=== PATIENT | female | born 1975 | race Caucasian/White ===

== ENCOUNTER 2023-03-27 15:36 | Emergency (ER) | payer OTHER, SELFPAY ==
[2023-03-27 15:40] VITALS: BP 170/90; PULSE 118; RESP 18; TEMP 37; O2SAT 99; BMI 37.8
--- NOTE | 2023-03-27 15:48 | ED.ABDPAIN1 ---
HPI - Abdominal Pain General Chief Complaint: Abdominal Pain Stated Complaint: Abdominal Pain Time Seen by Provider: 03/27/23 15:38 History of Present Illness HPI narrative: 47-year-old female presents for lower abdominal pain. She's had it since last night. No constipation or diarrhea or vomiting. She may have had some dysuria. No fever or complaints of back pain. She has a history of uterine fibroid that she states she didn't get taken care of because she had a promotion at work and didn't want to take off time. It is moderate and continuous. Related Data Home Medications Medication Instructions Recorded Confirmed hydrochlorothiazide 25 mg tablet 25 mg PO QDAY 03/27/23 03/27/23 lisinopril 10 mg tablet mg 03/27/23 omeprazole 40 mg capsule,delayed 40 mg PO QDAY 03/27/23 03/27/23 release Previous Rx's Medication Instructions Recorded ciprofloxacin HCl 500 mg tablet 500 mg PO Q12H #20 tabs 03/27/23 (Cipro) metronidazole 250 mg tablet 250 mg PO TID #30 tabs 03/27/23 Allergies Allergy/AdvReac Type Severity Reaction Status Date / Time No Known Drug Allergies Allergy Verified 03/27/23 15:39 Review of Systems ROS Narrative A ten point review of systems is negative except as noted above. Exam Narrative Exam Narrative: Nurses note and vital signs reviewed and patient is not hypoxic. General: The patient appears well and in no apparent distress. Patient is resting comfortably on cart. Skin: Warm, dry, no pallor noted. There is no rash noted. Head: Normocephalic, atraumatic Eye: Normal conjunctiva, no drainage Ears, Nose, Mouth, and Throat: oral mucosa is moist. Nares patent. Cardiovascular: Regular Rate and Rhythm Respiratory: Patient is in no distress, no accessory muscle use, lungs are clear to auscultation, no wheezing, rales or rhonchi Back: non-tender GI: tenderness across her lower abdomen without mass or distention. Musculoskeletal: The patient has no evidence of calf tenderness, no pitting edema, symmetrical pulses noted bilaterally Neurological: A&O, normal speech Psychiatric: Cooperative Constitutional Vital Signs, click to edit/add: Last Vital Signs Temp 98.6 F 03/27/23 15:40 Pulse 118 H 03/27/23 15:40 Resp 18 03/27/23 15:40 BP 170/90 H 03/27/23 15:40 Pulse Ox 99 03/27/23 15:40 O2 Del Method Room Air 03/27/23 15:40 Course Vital Signs Vital signs: Vital Signs Temperature 98.6 F 03/27/23 15:40 Pulse Rate 118 H 03/27/23 15:40 Respiratory Rate 18 03/27/23 15:40 Blood Pressure 170/90 H 03/27/23 15:40 Pulse Oximetry 99 03/27/23 15:40 Oxygen Delivery Method Room Air 03/27/23 15:40 Temperature 98.6 F 03/27/23 15:40 Pulse Rate 118 H 03/27/23 15:40 Respiratory Rate 18 03/27/23 15:40 Blood Pressure 170/90 H 03/27/23 15:40 Pulse Oximetry 99 03/27/23 15:40 Oxygen Delivery Method Room Air 03/27/23 15:40 MDM - Abdominal Pain MDM Narrative Medical decision making narrative: diverticulitis is identified and the patient was given IV Cipro and Flagyl here. She doesn't require admission the hospital and is discharged home on Cipro and Flagyl. Treatment diagnosis and follow-up were discussed with the patient. Differential Diagnosis Differential diagnosis: Likely abdominal pain, constipation, diverticulitis, gastroenteritis and small bowel obstruction Lab Data Attestation: I reviewed the patient's lab results. Labs: Lab Results 03/27/23 03/27/23 Range/Units 15:50 15:55 WBC 13.7 H (4.0-11.0) 10^3/uL RBC 4.70 (4.20-5.40) 10^6/uL Hgb 8.3 L (12.0-16.0) g/dL Hct 28.1 L (36.0-48.0) % MCV 59.8 L (81.0-99.0) fL MCH 17.7 L (26.7-34.0) pg MCHC 29.5 L (29.9-35.2) g/dL RDW 20.9 H (11.0-15.0) % Plt Count 536 H (150-450) 10^3/uL MPV 9.2 L (9.5-13.5) fL Neut % (Auto) 77.6 H (43.0-75.0) % Lymph % (Auto) 14.6 L (20.5-60.0) % [place] % (Auto) 7.0 (1.7-12.0) % Eos % (Auto) 0.2 L (0.9-7.0) % Baso % (Auto) 0.2 (0.2-2.0) % Neut # (Auto) 10.7 H (1.4-6.5) 10^3/uL Lymph # (Auto) 2.0 (1.2-3.8) 10^3/uL [place] # (Auto) 1.0 H (0.3-0.8) 10^3/uL Eos # (Auto) 0.0 (0.0-0.7) 10^3/uL Baso # (Auto) 0.0 (0.0-0.1) 10^3/uL Abs Immat Gran (auto) 0.05 H (0.00-0.03) 10^3/uL Imm/Tot Granulo (auto) 0.4 (0.0-0.5) % Sodium 134 L (136-145) mmol/L Potassium 3.3 L (3.5-5.1) mmol/L Chloride 100 (98-107) mmol/L Carbon Dioxide 24.8 (21.0-32.0) mmol/L Anion Gap 12.5 BUN 11.0 (7.0-18.0) mg/dL Creatinine 0.63 (0.55-1.02) mg/dL Est GFR ( Amer) >60 (>=60) Est GFR (Non-Af Amer) >60 (>=60) BUN/Creatinine Ratio 17.5 Glucose 105 (74-106) mg/dL Calcium 9.1 (8.5-10.1) mg/dL Urine Color Lt. yellow (YELLOW) Urine Clarity Clear (CLEAR) Urine pH 5.5 (5.0-9.0) Ur Specific [place] >=1.030 A (1.005-1.025) Urine Protein 30 A (NEG/TRACE) mg/dL Urine Glucose (UA) Negative (NEGATIVE) mg/dL Urine Ketones Negative (NEGATIVE) mg/dL Urine Occult Blood Trace-i (NEGATIVE) Urine Nitrite Negative (NEGATIVE) Urine Bilirubin Negative (NEGATIVE) Urine Urobilinogen 0.2 (0.2-1.0) EU/dL Ur Leukocyte Esterase Trace A (NEGATIVE) Urine RBC 2-5 A (0-2) #/HPF Urine WBC 10-20 A (NONE SEEN) #/HPF Ur Squamous Epith Cells Few A (NONE/RARE) #/LPF Urine Crystals None seen (None Seen) #/HPF Urine Bacteria Moderate A (NONE SEEN) #/HPF Urine Casts None seen (NONE SEEN) #/LPF Urine Mucus Moderate A (NONE SEEN) Urine HCG, Qual Negative (NEGATIVE) Imaging Data CT scan - abdomen: Radiologist's impression: Procedure: CT abdomen pelvis w con EXAM: CT abdomen pelvis w con HISTORY: low abd pain, hx of fibroids, WBC 13K COMPARISON: 04/09/2021 TECHNIQUE: Axial CT imaging was performed through the abdomen and pelvis with intravenous contrast. Multiplanar reformats were performed. Dose reduction techniques were achieved by using automated exposure control and/or adjustment of mA and/or kV according to patient size and/or use of iterative reconstruction technique. FINDINGS: Lung bases: Lung bases are clear. No pleural effusion. GI upper: Unremarkable. Liver: Normal size and contour. Gallbladder: No significant abnormality. No cholelithiasis. Biliary system: No intra or extrahepatic biliary ductal dilatation. Spleen: Normal size. Pancreas: Unremarkable. Adrenal glands: Normal adrenal glands. Kidneys/ureters: Normal contours. No hydronephrosis. Unchanged multiple right renal stones measuring up to 0.5 cm. Vessels: No aneurysm. Lymph Nodes: No lymphadenopathy. Small bowel: No wall thickening or dilatation. Colon: No dilatation. There are sigmoid diverticulosis. There is circumferential wall thickening of the distal sigmoid colon with surrounding fat stranding, representing acute sigmoid diverticulitis (series 3, image 121). Appendix: No findings of appendicitis. Peritoneal cavity: No pneumoperitoneum. Small pelvic free fluid. Lower : No significant abnormality of the uterus or adnexa. Bones: No acute bony abnormality. Soft tissues: No acute finding. Additional findings: None. IMPRESSION: CT evidence of acute sigmoid diverticulitis as described above. No evidence of microperforation. Small pelvic free fluid. Electronically authenticated by: LACI GALDAMEZ Date: 03/27/2023 16:55 Discharge Plan Discharge Chief Complaint: Abdominal Pain Clinical Impression: Diverticulitis Patient Disposition: Home, Self-Care Time of Disposition Decision: 17:19 Condition: Good Mode of Transportation: Private Vehicle Prescriptions / Home Meds: New ciprofloxacin HCl [Cipro] 500 mg tablet 500 mg PO Q12H Qty: 20 0RF metronidazole 250 mg tablet 250 mg PO TID Qty: 30 0RF No Action hydrochlorothiazide 25 mg tablet 25 mg PO QDAY lisinopril 10 mg tablet omeprazole 40 mg capsule,delayed release(DR/EC) 40 mg PO QDAY Instructions: Diverticulitis (ED) Additional Instructions: see your PCP in one week Stand Alone Forms: Portal Instructions Referrals: SANTHOSH ROBLEDO [Primary Care Provider] - 1 week
[2023-03-27 16:02] LABS: Basophils Percent Auto 0.2 % (0.2-2.0); Eosinophils Percent Auto 0.2 % (0.9-7.0); Hematocrit 28.1 % (36.0-48.0); Hemoglobin 8.3 g/dL (12.0-16.0); Immature Granulocytes Abs Auto 0.05 10^3/uL (0.00-0.03); Immature Granulocytes Pct Auto 0.4 % (0.0-0.5); Lymphocytes Percent Auto 14.6 % (20.5-60.0); Mean Corpuscular HGB Conc 29.5 g/dL (29.9-35.2); Mean Corpuscular Hemoglobin 17.7 pg (26.7-34.0); Mean Corpuscular Volume 59.8 fL (81.0-99.0); Mean Platelet Volume 9.2 fL (9.5-13.5); Neutrophils Absolute Auto 10.7 10^3/uL (1.4-6.5); Neutrophils Percent Auto 77.6 % (43.0-75.0); Platelet Count 536 10^3/uL (150-450); Red Cell Distribution Width 20.9 % (11.0-15.0); White Blood Count 13.7 10^3/uL (4.0-11.0)
[2023-03-27 16:05] LABS: Bilirubin Urine NEGATIVE (NEGATIVE); Blood Urine TRACE-I (NEGATIVE); Clarity Urine CLEAR (CLEAR); Color Urine LT. YELLOW (YELLOW); Glucose Urine UA NEGATIVE (NEGATIVE); HCG Qualitative Urine* NEGATIVE (NEGATIVE); Ketones Urine NEGATIVE (NEGATIVE); Leukocyte Esterase Urine TRACE (NEGATIVE); Nitrite Urine NEGATIVE (NEGATIVE); Protein Urine 30 mg/dL (NEG/TRACE); Specific Gravity Urine >=1.030 (1.005-1.025); Urobilinogen Urine 0.2 EU/dL (0.2-1.0); pH Urine 5.5 (5.0-9.0)
[2023-03-27 16:10] LABS: Anion Gap 12.5; BUN Creatinine Ratio 17.5; Calcium 9.1 mg/dL (8.5-10.1); Carbon Dioxide 24.8 mmol/L (21.0-32.0); Chloride 100 mmol/L (98-107); Estimated GFR (African America >60 (>=60); Estimated GFR (Non-African Ame >60 (>=60); Glucose 105 mg/dL (74-106); Potassium 3.3 mmol/L (3.5-5.1); Sodium 134 mmol/L (136-145)
--- NOTE | 2023-03-27 16:12 | CT_ITS ---
[address] [place], [place] [address] Patient Name: MELVA HARRISON MRN: [id number] date: 1975 Sex: F Assigned Patient Location: ER Current Patient Location: .[facility] Accession/Order Number: [id number] Exam Date: 03/27/2023 16:25 Report Date: 03/27/2023 16:55 At the request of: TATIANNA SALVADOR Procedure: CT abdomen pelvis w con EXAM: CT abdomen pelvis w con HISTORY: low abd pain, hx of fibroids, WBC 13K COMPARISON: 04/09/2021 TECHNIQUE: Axial CT imaging was performed through the abdomen and pelvis with intravenous contrast. Multiplanar reformats were performed. Dose reduction techniques were achieved by using automated exposure control and/or adjustment of mA and/or kV according to patient size and/or use of iterative reconstruction technique. FINDINGS: Lung bases: Lung bases are clear. No pleural effusion. GI upper: Unremarkable. Liver: Normal size and contour. Gallbladder: No significant abnormality. No cholelithiasis. Biliary system: No intra or extrahepatic biliary ductal dilatation. Spleen: Normal size. Pancreas: Unremarkable. Adrenal glands: Normal adrenal glands. Kidneys/ureters: Normal contours. No hydronephrosis. Unchanged multiple right renal stones measuring up to 0.5 cm. Vessels: No aneurysm. Lymph Nodes: No lymphadenopathy. Small bowel: No wall thickening or dilatation. Colon: No dilatation. There are sigmoid diverticulosis. There is circumferential wall thickening of the distal sigmoid colon with surrounding fat stranding, representing acute sigmoid diverticulitis (series 3, image 121). Appendix: No findings of appendicitis. Peritoneal cavity: No pneumoperitoneum. Small pelvic free fluid. Lower : No significant abnormality of the uterus or adnexa. Bones: No acute bony abnormality. Soft tissues: No acute finding. Additional findings: None. CT/CT abdomen pelvis w con IMPRESSION: CT evidence of acute sigmoid diverticulitis as described above. No evidence of microperforation. Small pelvic free fluid. Electronically authenticated by: LACI GALDAMEZ Date: 03/27/2023 16:55
[2023-03-27 16:16] LABS: Bacteria Urine MODERATE #/HPF (NONE SEEN); Cast Seen? NONE SEEN #/LPF (NONE SEEN); Crystals Seen? None Seen #/HPF (None Seen); Mucus Urine MODERATE (NONE SEEN); Squamous Epithelial Cell Urine FEW #/LPF (NONE/RARE)
[2023-03-27] MEDS: CIPROFLOXACIN IN 5 % DEXTROSE 400 MG/200 ML PIGGYBACK 200 MG IV (17:35)
[2023-03-27] MEDS: METRONIDAZOLE/SODIUM CHLORIDE 500 MG/100 ML PREMIX 100 MG IV (18:41)
== END 2023-03-27 19:10 | disposition home or self-care (01) ==
PROVIDERS: Emergency Provider Emergency Medicine; PCP Nurse Practitioner Family
DX: K57.32 Diverticulitis of large intestine without perforation or abscess without bleeding (principal); Z79.899 Other long term (current) drug therapy
CPT/HCPCS: 36415; 74177; 80048; 81001; 84703; 85025; 96365; 96366; 96375; 99285; Q9967

== ENCOUNTER 2023-07-20 16:04 | Emergency (ER) | payer BC, SELFPAY ==
[2023-07-20 16:15] VITALS: BP 176/101; PULSE 102; RESP 18; TEMP 36.9; O2SAT 97; BMI 39.1
--- NOTE | 2023-07-20 16:43 | XR_ITS ---
The [address] [address] Patient Name: MELVA HARRISON MRN: [id number] date: 1975 Sex: F Assigned Patient Location: ER Current Patient Location: ED.MAIN Accession/Order Number: [id number] Exam Date: 07/20/2023 17:18 Report Date: 07/20/2023 18:20 At the request of: ESPERANZA REAGAN Procedure: XR lumbar spine 2-3V IMAGES REVIEWED: XR lumbar spine 2-3V COMPARISON: 03/27/2023. CLINICAL INDICATION: pain FINDINGS/IMPRESSION: 1. No radiographic evidence of acute osseous abnormality of the lumbar spine. 2. Stable mild multilevel degenerative changes. 3. No spondylolisthesis. Electronically authenticated by: JAZMINE GAMEZ Date: 07/20/2023 18:20
[2023-07-20] MEDS: PREDNISONE 20 MG TABLET 60 MG PO (17:33)
[2023-07-20] MEDS: KETOROLAC TROMETHAMINE 60 MG/2 ML VIAL IM (17:33)
[2023-07-20 18:19] LABS: Bilirubin Urine NEGATIVE (NEGATIVE); Blood Urine NEGATIVE (NEGATIVE); Clarity Urine CLEAR (CLEAR); Color Urine LT. YELLOW (YELLOW); Glucose Urine UA NEGATIVE (NEGATIVE); Ketones Urine NEGATIVE (NEGATIVE); Leukocyte Esterase Urine NEGATIVE (NEGATIVE); Nitrite Urine NEGATIVE (NEGATIVE); Protein Urine NEGATIVE (NEG/TRACE); Specific Gravity Urine 1.025 (1.005-1.025); Urine Microscopic Indicated NO; Urobilinogen Urine 0.2 EU/dL (0.2-1.0)
--- NOTE | 2023-07-20 18:34 | ED_ITS ---
Documented by User: Cristiane Flores 07/20/23 18:38 HPI - Back Pain/Injury General Chief Complaint: Back Pain/Injury Stated Complaint: Back Pain Time Seen by Provider: 07/20/23 17:00 Source: patient Mode of arrival: walk-in Limitations: no limitations History of Present Illness HPI Narrative: 47-year-old female presents here with chief complaint of lower lumbar pain. Complains of lower lumbar centralized pain. Denies any injury or trauma. Denies numbness, tingling, loss of bowel or bladder function. She states the pain and spasming began yesterday. She denies any known history of injury. She states she was lifting and twisting at work approximately one week ago but nothing since. Patient denies any weakness in her legs. She is able stand and ambulate. She denies any flank pain or urinary symptoms. MD elicited complaint: Reports back pain and back injury Related Data Home Medications Medication Instructions Recorded Confirmed hydrochlorothiazide 25 mg tablet 25 mg PO QDAY 03/27/23 03/27/23 lisinopril 10 mg tablet mg 03/27/23 omeprazole 40 mg capsule,delayed 40 mg PO QDAY 03/27/23 03/27/23 release Previous Rx's Medication Instructions Recorded acetaminophen 300 mg-codeine 30 mg 1 tab PO Q6H PRN pain #20 tabs 03/27/23 tablet ciprofloxacin HCl 500 mg tablet 500 mg PO Q12H #20 tabs 03/27/23 (Cipro) metronidazole 250 mg tablet 250 mg PO TID #30 tabs 03/27/23 ondansetron 4 mg disintegrating 4 mg PO Q6H PRN nausea and 03/27/23 tablet vomiting #20 tabs methocarbamol 500 mg tablet 500 mg PO TID PRN spasms #14 tabs 07/20/23 naproxen 500 mg tablet (Naprosyn) 500 mg PO Q8H PRN pain #14 tabs 07/20/23 prednisone 50 mg tablet 50 mg PO DAILY 7 days #7 tabs 07/20/23 Allergies Allergy/AdvReac Type Severity Reaction Status Date / Time No Known Drug Allergies Allergy Verified 03/27/23 15:39 Review of Systems ROS Narrative All Systems are negative except as noted/marked.All systems reviewed and otherwise negative Exam Narrative Exam Narrative: Nurses note and vital signs reviewed and patient is not hypoxic. General: The patient appears well and in no apparent distress. Patient is resting comfortably on cart. Skin: Warm, dry, no pallor noted. There is no rash noted. Head: Normocephalic, atraumatic Ears, Nose, Mouth, and Throat: oral mucosa is moist. Nares patent. Mouth without vesicles. Ear canals patent. Tm's without Erythema Cardiovascular: Regular Rate and Rhythm Respiratory: Patient is in no distress, no accessory muscle use, lungs are clear to auscultation, no wheezing, rales or rhonchi Back: Centralized L4-L5 tenderness no acute step-off bruising or ecchymosis, non-tender, no CVA tenderness bilaterally to percussion. . Musculoskeletal: Patient ambulates well no acute lower extremity weakness, no deformity no leg shortening, ambulating well Neurological: A&O x4, normal speech Psychiatric: Cooperative Constitutional Vital Signs, click to edit/add: Last Vital Signs Temp 98.5 F 07/20/23 16:15 Pulse 102 H 07/20/23 16:15 Resp 18 07/20/23 16:15 BP 176/101 H 07/20/23 16:15 Pulse Ox 97 07/20/23 16:15 O2 Del Method Room Air 07/20/23 16:15 Course Vital Signs Vital signs: Vital Signs Temperature 98.5 F 07/20/23 16:15 Pulse Rate 102 H 07/20/23 16:15 Respiratory Rate 18 07/20/23 16:15 Blood Pressure 176/101 H 07/20/23 16:15 Pulse Oximetry 97 07/20/23 16:15 Oxygen Delivery Method Room Air 07/20/23 16:15 Temperature 98.5 F 07/20/23 16:15 Pulse Rate 102 H 07/20/23 16:15 Respiratory Rate 18 07/20/23 16:15 Blood Pressure 176/101 H 07/20/23 16:15 Pulse Oximetry 97 07/20/23 16:15 Oxygen Delivery Method Room Air 07/20/23 16:15 MDM - Back Pain/Injury MDM Narrative Medical decision making narrative: She presented here with a chief complaint of lower lumbar pain. Patient denied any known injury or trauma. Medicated here with Toradol and prednisone. Emergency Room course, patient was medicated here x-rays were performed.She'll be discharged home with prescription for Naprosyn, prednisone and muscle relaxants. X-rays show no acute deformity dislocation or step-offs. Patient's examination is benign no signs of cauda equina. She denies any numbness, tingling loss of bowel or bladder function. Differential Diagnosis Differential diagnosis: Likely lumbar radiculopathy, strain of lumbar region and pyelonephritis Medical Records Attestation: I reviewed the patient's medical records. Lab Data Attestation: I reviewed the patient's lab results. Labs: Lab Results 07/20/23 Range/Units 18:00 Urine Color Lt. yellow (YELLOW) Urine Clarity Clear (CLEAR) Urine pH 6.0 (5.0-9.0) Ur Specific [place] 1.025 (1.005-1.025) Urine Protein Negative (NEG/TRACE) mg/dL Urine Glucose (UA) Negative (NEGATIVE) mg/dL Urine Ketones Negative (NEGATIVE) mg/dL Urine Occult Blood Negative (NEGATIVE) Urine Nitrite Negative (NEGATIVE) Urine Bilirubin Negative (NEGATIVE) Urine Urobilinogen 0.2 (0.2-1.0) EU/dL Ur Leukocyte Esterase Negative (NEGATIVE) Imaging Data lumbar: Attestation: I have reviewed the pertinent imaging results. Radiologist's impression: Patient Name: MELVA HARRISON MRN: [id number] date: 1975 Sex: F Assigned Patient Location: ER Current Patient Location: ED.MAIN Accession/Order Number: [id number] Exam Date: 07/20/2023 17:18 Report Date: 07/20/2023 18:20 At the request of: ESPERANZA FERRERA Procedure: XR lumbar spine 2-3V IMAGES REVIEWED: XR lumbar spine 2-3V COMPARISON: 03/27/2023. CLINICAL INDICATION: pain FINDINGS/IMPRESSION: 1. No radiographic evidence of acute osseous abnormality of the lumbar spine. 2. Stable mild multilevel degenerative changes. 3. No spondylolisthesis. Electronically authenticated by: JAZMINE GAMEZ Date: 07/20/2023 18:20 Discharge Plan Discharge Chief Complaint: Back Pain/Injury Clinical Impression: Strain of lumbar region Patient Disposition: Home, Self-Care Time of Disposition Decision: 18:30 Condition: Good Mode of Transportation: Private Vehicle Prescriptions / Home Meds: New prednisone 50 mg tablet 50 mg PO DAILY 7 Days Qty: 7 0RF methocarbamol 500 mg tablet 500 mg PO TID PRN (Reason: spasms) Qty: 14 0RF naproxen [Naprosyn] 500 mg tablet 500 mg PO Q8H PRN (Reason: pain) Qty: 14 0RF No Action hydrochlorothiazide 25 mg tablet 25 mg PO QDAY lisinopril 10 mg tablet omeprazole 40 mg capsule,delayed release(DR/EC) 40 mg PO QDAY ciprofloxacin HCl [Cipro] 500 mg tablet 500 mg PO Q12H Qty: 20 0RF metronidazole 250 mg tablet 250 mg PO TID Qty: 30 0RF acetaminophen-codeine 300-30 mg tablet 1 tab PO Q6H PRN (Reason: pain) Qty: 20 0RF ondansetron 4 mg tablet,disintegrating 4 mg PO Q6H PRN (Reason: nausea and vomiting) Qty: 20 0RF Instructions: Low Back Strain (ED), Back Pain (ED), Lower Back Exercises (ED) Stand Alone Forms: Portal Instructions Referrals: SANTHOSH ROBLEDO [Primary Care Provider] - 1 week Discharge Date/Time: 07/20/23 18:48 Documented by User: Esperanza Ferrera MD 07/20/23 21:04 HPI - Back Pain/Injury General Chief Complaint: Back Pain/Injury Stated Complaint: Back Pain Time Seen by Provider: 07/20/23 17:00 Related Data Home Medications Medication Instructions Recorded Confirmed hydrochlorothiazide 25 mg tablet 25 mg PO QDAY 03/27/23 03/27/23 lisinopril 10 mg tablet mg 03/27/23 omeprazole 40 mg capsule,delayed 40 mg PO QDAY 03/27/23 03/27/23 release Previous Rx's Medication Instructions Recorded acetaminophen 300 mg-codeine 30 mg 1 tab PO Q6H PRN pain #20 tabs 03/27/23 tablet ciprofloxacin HCl 500 mg tablet 500 mg PO Q12H #20 tabs 03/27/23 (Cipro) metronidazole 250 mg tablet 250 mg PO TID #30 tabs 03/27/23 ondansetron 4 mg disintegrating 4 mg PO Q6H PRN nausea and 03/27/23 tablet vomiting #20 tabs methocarbamol 500 mg tablet 500 mg PO TID PRN spasms #14 tabs 07/20/23 naproxen 500 mg tablet (Naprosyn) 500 mg PO Q8H PRN pain #14 tabs 07/20/23 prednisone 50 mg tablet 50 mg PO DAILY 7 days #7 tabs 07/20/23 Allergies Allergy/AdvReac Type Severity Reaction Status Date / Time No Known Drug Allergies Allergy Verified 03/27/23 15:39 Exam Constitutional Vital Signs, click to edit/add: Last Vital Signs Temp 98.5 F 07/20/23 16:15 Pulse 102 H 07/20/23 16:15 Resp 18 07/20/23 16:15 BP 176/101 H 07/20/23 16:15 Pulse Ox 97 07/20/23 16:15 O2 Del Method Room Air 07/20/23 16:15 Course Vital Signs Vital signs: Vital Signs Temperature 98.5 F 07/20/23 16:15 Pulse Rate 102 H 07/20/23 16:15 Respiratory Rate 18 07/20/23 16:15 Blood Pressure 176/101 H 07/20/23 16:15 Pulse Oximetry 97 07/20/23 16:15 Oxygen Delivery Method Room Air 07/20/23 16:15 Temperature 98.5 F 07/20/23 16:15 Pulse Rate 102 H 07/20/23 16:15 Respiratory Rate 18 07/20/23 16:15 Blood Pressure 176/101 H 07/20/23 16:15 Pulse Oximetry 97 07/20/23 16:15 Oxygen Delivery Method Room Air 07/20/23 16:15 MDM - Back Pain/Injury MDM Narrative Medical decision making narrative: She presented here with a chief complaint of lower lumbar pain. Patient denied any known injury or trauma. Medicated here with Toradol and prednisone. Emergency Room course, patient was medicated here x-rays were performed.She'll be discharged home with prescription for Naprosyn, prednisone and muscle relaxants. X-rays show no acute deformity dislocation or step-offs. Patient's examination is benign no signs of cauda equina. She denies any numbness, tingling loss of bowel or bladder function. I, Dr Ferrera, have reviewed the above progress note and course of action in the ER; agree with the above. I have gone over history and physical, and discussed disposition and treatment plan with the patient. Lab Data Labs: Lab Results 07/20/23 Range/Units 18:00 Urine Color Lt. yellow (YELLOW) Urine Clarity Clear (CLEAR) Urine pH 6.0 (5.0-9.0) Ur Specific [place] 1.025 (1.005-1.025) Urine Protein Negative (NEG/TRACE) mg/dL Urine Glucose (UA) Negative (NEGATIVE) mg/dL Urine Ketones Negative (NEGATIVE) mg/dL Urine Occult Blood Negative (NEGATIVE) Urine Nitrite Negative (NEGATIVE) Urine Bilirubin Negative (NEGATIVE) Urine Urobilinogen 0.2 (0.2-1.0) EU/dL Ur Leukocyte Esterase Negative (NEGATIVE) Discharge Plan Discharge Chief Complaint: Back Pain/Injury Clinical Impression: Strain of lumbar region Patient Disposition: Home, Self-Care Time of Disposition Decision: 18:30 Condition: Good Mode of Transportation: Private Vehicle Prescriptions / Home Meds: New prednisone 50 mg tablet 50 mg PO DAILY 7 Days Qty: 7 0RF methocarbamol 500 mg tablet 500 mg PO TID PRN (Reason: spasms) Qty: 14 0RF naproxen [Naprosyn] 500 mg tablet 500 mg PO Q8H PRN (Reason: pain) Qty: 14 0RF No Action hydrochlorothiazide 25 mg tablet 25 mg PO QDAY lisinopril 10 mg tablet omeprazole 40 mg capsule,delayed release(DR/EC) 40 mg PO QDAY ciprofloxacin HCl [Cipro] 500 mg tablet 500 mg PO Q12H Qty: 20 0RF metronidazole 250 mg tablet 250 mg PO TID Qty: 30 0RF acetaminophen-codeine 300-30 mg tablet 1 tab PO Q6H PRN (Reason: pain) Qty: 20 0RF ondansetron 4 mg tablet,disintegrating 4 mg PO Q6H PRN (Reason: nausea and vomiting) Qty: 20 0RF Instructions: Low Back Strain (ED), Back Pain (ED), Lower Back Exercises (ED) Stand Alone Forms: Portal Instructions Referrals: SANTHOSH ROBLEDO [Primary Care Provider] - 1 week Discharge Date/Time: 07/20/23 18:48
== END 2023-07-20 18:48 | disposition home or self-care (01) ==
PROVIDERS: Emergency Provider Emergency Medicine; PCP Nurse Practitioner Family
DX: S39.012A Strain of muscle, fascia and tendon of lower back, initial encounter (principal); X58.XXXA Exposure to other specified factors, initial encounter; Z79.899 Other long term (current) drug therapy
CPT/HCPCS: 72100; 81003; 96372; 99285; J1885; J7512

== ENCOUNTER 2024-11-12 09:48 | Emergency (ER) | payer BC, SELFPAY ==
[2024-11-12 09:52] VITALS: BP 137/68; PULSE 88; TEMP 37.1; O2SAT 100; BMI 46.4
--- NOTE | 2024-11-12 10:12 | ED_ITS ---
HPI HPI - General Adult General Chief complaint: Arrhythmia/Palpitations Stated complaint: CHEST TIGHTNESS/ PANIC ATTACK Time Seen by Provider: 11/12/24 09:50 Source: patient Mode of arrival: walk-in History of Present Illness HPI narrative: Patient presents to ED complaining of some chest tightness. She said she was at work when this started. She got some centralized chest tightness. The pain did not radiate anywhere. She said nothing stressful was going on at work it just came on out of the blue. She does have a history of hypertension and she takes hydrochlorothiazide. She was just started on Avapro and took her first dose this morning at 5 AM so she was not sure if maybe it was a reaction to the medication. Patient said her pain is better now than it was but still there a little bit. No shortness of breath now but she said when it came on she felt a little winded she said she felt like she was may be running around but she was just standing still. She said there were no palpitations or increased heart rate. No sweating no vomiting. The pain did not radiate anywhere. She does have a family history of heart issues. At this time she is resting comfortably in the bed vital signs stable no acute distress. Related Data Home Medications ?Medication ?Instructions ?Recorded ?Confirmed hydrochlorothiazide 25 mg tablet 25 mg PO QDAY 3 11/12/24 omeprazole 40 mg capsule,delayed 40 mg PO QDAY 3 11/12/24 release Allergies Allergy/AdvReac Type Severity Reaction Status Date / Time No Known Drug Allergies Allergy Verified 03/27/23 15:39 Opioid HPI Opioid Management Most Recent Opioid Data: Last Pain Scale 8 03/27/23, 18:48 Review of Systems ROS Status of ROS 10 or more systems reviewed and unremark able except as noted in history and below PFSH PFSH Social History Little interest or pleasure in doing things: not at all Feeling down, depressed, or hopeless: not at all Exam Narrative Exam Narrative: Time Seen: [] Vital Signs: [Per nurse's notes.] General: [Alert] Skin: [Warm, dry, no rash.] Head: [Normocephalic, atraumatic.] Neck: [Supple, trachea midline.] Eye: [Pupils are equal, round and reactive to light, extraocular movements are intact, normal conjunctiva.] Ears, nose, mouth and throat: oral mucosa moist. Cardiovascular: [Regular rate and rhythm, no murmur.] Respiratory: [Lungs are clear to auscultation, respirations are non-labored, breath sounds are equal.] Chest wall: [No tenderness, no deformity.] Gastrointestinal: [Obese, soft, nontender, non distended, normal bowel sounds.] MSK: 5 out of 5 muscle strength x 4 extremities no calf pain mild lower extremity edema which patient states is chronic for her Psychiatric: [Cooperative, appropriate mood & affect.] Neurological: [Alert and oriented to person, place, time, and situation, no focal neurological deficit observed.] Constitutional Vital Signs, click to edit/add: Last Vital Signs Temp 98.7 F 11/12/24 09:52 Pulse 95 H 11/12/24 11:04 Resp 20 11/12/24 11:04 BP 140/71 11/12/24 11:04 Pulse Ox 98 11/12/24 11:04 O2 Del Method Room Air 11/12/24 11:04 Course Vital Signs Vital signs: Vital Signs Temperature 98.7 F 11/12/24 09:52 Pulse Rate 88 11/12/24 09:52 Respiratory Rate 18 11/12/24 09:52 Blood Pressure 137/68 11/12/24 09:52 Pulse Oximetry 100 11/12/24 09:52 Oxygen Delivery Method Room Air 11/12/24 09:52 Temperature 98.7 F 11/12/24 09:52 Pulse Rate 95 H 11/12/24 11:04 Respiratory Rate 20 11/12/24 11:04 Blood Pressure 140/71 11/12/24 11:04 Pulse Oximetry 98 11/12/24 11:04 Oxygen Delivery Method Room Air 11/12/24 11:04 Medical Decision Making MDM Narrative Medical decision making narrative: Patient's labs including troponin and D-dimer were negative for acute. This possibly could have been a reaction to her new medication however it is unclear at this time exactly what is causing her pain. No evidence of blood clot or acute MA. EKG is normal. Patient is feeling better. Return to ED if worsening symptoms otherwise follow-up with family doctor. Patient is comfortable going home and following up outpatient. I instructed patient to follow-up with her doctor to discuss the medication if she thinks that could be causing her pain. Differential Diagnosis Differential Diagnosis: Chest pain, PE, anxiety Lab Data Lab results reviewed: Yes I reviewed the patient's lab results Labs: Lab Results 11/12/24 Range/Units 10:20 WBC 9.9 (4.0-11.0) 10^3/uL RBC 4.53 (4.20-5.40) 10^6/uL Hgb 8.0 L (12.0-16.0) g/dL Hct 27.0 L (36.0-48.0) % MCV 59.6 L (81.0-99.0) fL MCH 17.7 L (26.7-34.0) pg MCHC 29.6 L (29.9-35.2) g/dL RDW 20.0 H (11.0-15.0) % Plt Count 474 H (150-450) 10^3/uL MPV 9.1 L (9.5-13.5) fL Neut % (Auto) 70.0 (43.0-75.0) % Lymph % (Auto) 20.1 L (20.5-60.0) % [place] % (Auto) 8.0 (1.7-12.0) % Eos % (Auto) 1.0 (0.9-7.0) % Baso % (Auto) 0.5 (0.2-2.0) % Neut # (Auto) 6.9 H (1.4-6.5) 10^3/uL Lymph # (Auto) 2.0 (1.2-3.8) 10^3/uL [place] # (Auto) 0.8 (0.3-0.8) 10^3/uL Eos # (Auto) 0.1 (0.0-0.7) 10^3/uL Baso # (Auto) 0.1 (0.0-0.1) 10^3/uL Abs Immat Gran (auto) 0.04 H (0.00-0.03) 10^3/uL Imm/Tot Granulo (auto) 0.4 (0.0-0.5) % D-Dimer 0.52 (<=0.59) mg/L FEU Sodium 136 (136-145) mmol/L Potassium 3.4 L (3.5-5.1) mmol/L Chloride 98 (98-107) mmol/L Carbon Dioxide 26.8 (21.0-32.0) mmol/L Anion Gap 14.6 BUN 12.0 (7.0-18.0) mg/dL Creatinine 0.64 (0.55-1.02) mg/dL Est GFR ( Amer) >60 (>=60 mL/min/1.73m^2) Est GFR (Non-Af Amer) >60 (>=60 mL/min/1.73m^2) BUN/Creatinine Ratio 18.8 Glucose 113 H (74-106) mg/dL Calcium 8.7 (8.5-10.1) mg/dL Total Bilirubin 0.3 (0.2-1.0) mg/dL AST 12 L (15-37) U/L ALT 17 (14-59) U/L Alkaline Phosphatase 82 (46-116) U/L Troponin I High Sens <4.0 L (4.0-51.3) pg/mL Total Protein 8.1 (6.4-8.2) g/dL Albumin 3.2 L (3.4-5.0) g/dL Globulin 4.9 g/dL Albumin/Globulin Ratio 0.7 ECG Data Attestation: I personally reviewed and interpreted this ECG as follows: Interpretation: EKG INTERPRETATION Time: [] 956 Rate: [] 89 Rhythm: _ [] Normal sinus rhythm ST segments: _ [] No acute ST elevation or depression T waves: _ [] Ectopy: _ [] P wave/CA interval: _ [] QRS interval: _ [] QT interval: _ [] Comparison: _ [] Comparison EKG date: [] Performed by: [self] Discharge Plan Discharge Chief Complaint: Arrhythmia/Palpitations Clinical Impression: Chest pain Patient Disposition: Home, Self-Care Time of Disposition Decision: 11:05 Condition: Good Mode of Transportation: Private Vehicle Prescriptions / Home Meds: No Action hydrochlorothiazide 25 mg tablet 25 mg PO QDAY omeprazole 40 mg capsule,delayed release(DR/EC) 40 mg PO QDAY Print Language: Slovenian Instructions: Chest Pain (ED) Referrals: SANTHOSH ROBLEDO [Primary Care Provider, Family Practice] - 1 week Discharge Date/Time: 11/12/24 11:23
[2024-11-12 10:13] VITALS: BP 136/77; PULSE 87; O2SAT 99
[2024-11-12 10:31] LABS: Basophils Absolute Auto 0.1 10^3/uL (0.0-0.1); Basophils Percent Auto 0.5 % (0.2-2.0); Eosinophils Absolute Auto 0.1 10^3/uL (0.0-0.7); Immature Granulocytes Abs Auto 0.04 10^3/uL (0.00-0.03); Immature Granulocytes Pct Auto 0.4 % (0.0-0.5); Lymphocytes Percent Auto 20.1 % (20.5-60.0); Mean Corpuscular HGB Conc 29.6 g/dL (29.9-35.2); Mean Corpuscular Hemoglobin 17.7 pg (26.7-34.0); Mean Corpuscular Volume 59.6 fL (81.0-99.0); Mean Platelet Volume 9.1 fL (9.5-13.5); Monocytes Absolute Auto 0.8 10^3/uL (0.3-0.8); Neutrophils Absolute Auto 6.9 10^3/uL (1.4-6.5); Platelet Count 474 10^3/uL (150-450); White Blood Count 9.9 10^3/uL (4.0-11.0)
[2024-11-12 10:55] LABS: D Dimer 0.52 mg/L FEU (<=0.59)
[2024-11-12 10:57] LABS: Alanine Aminotransferase 17 U/L (14-59); Albumin Globulin Ratio 0.7; Albumin Level 3.2 g/dL (3.4-5.0); Alkaline Phosphatase 82 U/L (46-116); Anion Gap 14.6; Aspartate Amino Transferase 12 U/L (15-37); BUN Creatinine Ratio 18.8; Bilirubin Total 0.3 mg/dL (0.2-1.0); Calcium 8.7 mg/dL (8.5-10.1); Carbon Dioxide 26.8 mmol/L (21.0-32.0); Chloride 98 mmol/L (98-107); Estimated GFR (African America >60 (>=60 mL/min/1.73m^2); Estimated GFR (Non-African Ame >60 (>=60 mL/min/1.73m^2); Globulin 4.9 g/dL; Glucose 113 mg/dL (74-106); Potassium 3.4 mmol/L (3.5-5.1); Red Blood Count 4.53 10^6/uL (4.20-5.40); Sodium 136 mmol/L (136-145); Total Protein 8.1 g/dL (6.4-8.2); Troponin I High Sensitivity <4.0 pg/mL (4.0-51.3)
[2024-11-12 11:04] VITALS: BP 140/71; PULSE 95; O2SAT 98
--- NOTE | 2024-11-12 16:04 | ECG_ITS ---
[facility] Test Date: 2024-11-12 Pat Name: MELVA HARRISON Department: Room: - Gender: Female Counter Clerk: : 1975 Requested By: [id number] Order Number: [id number] Reading MD: VICKI MACKENZIE M.D. Measurements Intervals Cameron Rate: 89 P: 49 FL: 154 QRS: 75 QRSD: 88 T: 39 QT: 372 QTc: 419 Interpretive Statements 1100 Sinus rhythm 9110 normal ECG Compared to ECG 09/22/2018 21:16:18 No significant changes Electronically Signed On 11-12-2024 21:08:07 EDT by VICKI MACKENZIE M.D.
== END 2024-11-12 11:23 | disposition home or self-care (01) ==
PROVIDERS: Emergency Provider Emergency Medicine; PCP Nurse Practitioner Family
DX: R07.9 Chest pain, unspecified (principal); I10 Essential (primary) hypertension; Z79.899 Other long term (current) drug therapy
CPT/HCPCS: 36415; 71045; 80053; 84484; 85025; 85378; 93005; 99284

== ENCOUNTER 2025-03-18 10:34 | Outpatient (OUT) | payer BC, SELFPAY ==
--- OUTSIDE RECORDS SUMMARY | 2025-03-17 14:51 | XMS_ITS | CCD ---
Author Organization [facility] Inform ion Partnership [facility] Care Team Providers Care Ferryboat Pilot Name Role Phone Carlie Glez Unavailable SANTHOSH ROBLEDO Primary Care Unavailable SHAWNA, DR CARRIE Byers Admitting Unavailabl e CHRISECK, DR CARRIE Byers Attending Unavailabl e CHRISECK, DR CARRIE Byers Consulting Unavailabl e VENKAT, SANTHOSH Admitting Unavailable VENKAT, SANTHOSH Attending Unavailable VENKAT, SANTHOSH Primary Care Unavailable VENKAT, SANTHOSH Consulting Unavailable HOY, DR MCKOY Admitting Unavailable HOY, DR MKCOY Attending Unavailable VENKAT, SANTHOSH Primary Care Unavailable HOY, DR MCKOY Consulting Unavailable VENKAT, SANTHOSH Primary Care Unavailable PAY, DR MATA Admitting Unavailable PAY, DR MATA Attending Unavailable PAY, DR MATA Consulting Unavailable KLJEREMIE MIXON Consulting Unavailable Problems Active Problems Problem Classification Problem Date Documented Da te Episodic/Chronic E Codes: Fall (1 source) Fall on same level from slipping, tripping and stumbling without subsequent striking against object, initial encounter; Translations: [FALL SAME LVL SLIP NO STRK OBJ INIT] Onset: 05-04-2022 Episodic Other connective tissue disease (4 sources) Pain in left hand; Translations: [PAIN IN LEFT HAND] Onset: 05-03-2022 Episodic Screening and history of mental health and substance abuse codes (1 source) Personal history of nicotine dependence; Translations: [PERSONAL HISTORY OF NICOTINE DEPEND] Onset: 05-04-2022 Episodic Superficial injury; contusion (2 sources) Contusion of left hand, initial encounter; Translations: [Abrasion of left hand, initial encounter] Onset: 05-04-2022 Episodic Unclassified (3 sources) CONTACT W/AND (SUSP) EXPOS COVID-19; Translations: [CONTACT W/AND (SUSP) EXPOS COVID-19] Onset: 07-14-2021 Viral infection (4 sources) COVID-19; Translations: [COVID-19] Onset: 07-19-2021 Past or Other Problems Problem Classification Problem Date Documented Da te Episodic/Chronic Acute bronchitis (1 source) Acute bronchitis, unspecified; Translations: [ACUTE BRONCHITIS UNSPECIFIED] Onset: 07-14-2021 Episodic Immunizations and screening for infectious disease (3 sources) Contact with and (suspected) exposure to other viral communicable diseases; Translations: [Encounter for immunization] Onset: 07-08-2021 Resolved: 07-08-2021 Episodic Unclassified (1 source) CONTACT W/AND (SUSP) EXPOS COVID-19; Translations: [CONTACT W/AND (SUSP) EXPOS COVID-19] Onset: 07-17-2021 Results Test Name Value Interpretation Reference Range Facility XR HAND LT MIN 3Von 05-03-20 XR HAND LT MIN 3V EXAM: XR WRIST LT MIN 3 V, XR HAND LT MIN 3V HISTORY: Tripped over dog COMPARISON: None. TECHNIQUE: 3 views of the wrist and 3 views of the hand FINDINGS: No osseous lesion, fracture, dislocation or subluxation. Joint spaces are normal. No visualized effusion. No visualized soft tissue edema. IMPRESSION: Normal x-rays Electronically authenticated by: JEREMIE BLOOM Date: 2022-05-03 14:31 Normal [facility] Covid-19 PCR ([facility])on SARS-CoV-2 (COVID-19) RNA ESTHER+probe Ql (Unsp spec) Detected Critically abnormal NOT DETECTED [facility] Comment on above: Result Comment: This test is not yet renata roved or cleared by the [place] FDA. When there are no FDA-approved or cleared tests available, and other criteria are met, FDA can make tests available under an emergency access mechanism called an Emergency Use Authorization (EUA). The EUA for this test is supported by the [place] of Health and Human Service's declaration that circumstances exist to justify the emergency use of in vitro diagnostics for the detection and/or diagnosis of the virus that causes COVID-19. This EUA will remain in effect for the duration of the COVID-19 declaration justifying emergency of IVDs, unless it is terminated or revoked by the FDA (after which the test may no longer be used). Performed By: #### [facility] #### [facility] [address] [place], [place] [id number] Dr. Caro Rowland COVID Quick Testingon 2020 Result Negative [facility] Other Covid-19 PCR ([facility])on 06-16 SARS-CoV-2 (COVID-19) RNA ESTHER+probe Ql (Unsp spec) Not detected Normal NOT DETECTED [facility] Comment on above: Result Comment: This test is not yet renata roved or cleared by the [place] FDA. When there are no FDA-approved or cleared tests available, and other criteria are met, FDA can make tests available under an emergency access mechanism called an Emergency Use Authorization (EUA). The EUA for this test is supported by the [place] of Health and Human Service's (HHS's) declaration that circumstances exist to justify the emergency use of in vitro diagnostics for the detection and/or diagnosis of the virus that causes COVID-19. This EUA will remain in effect (meaning this test can be used) for the duration of the COVID-19 declaration justifying emergency of IVDs, unless it is terminated or revoked by FDA (after which the test may no longer be used). When diagnostic testing is negative, the possibility of a false negative should be considered in the context of a patient's recent exposures and the presence of clinical signs and symptoms consistent with SARS-CoV-2. Performed By: #### [facility] #### [facility] [address] [place], [place] [id number] Dr. Caro Rowland Encounters Encounter Date Encounter Type Care Provider Facility Start: 05-03-2022 End: 05-03-2022 ambulatory SANTHOSH ROBLEDO Facility:H1 Start: 07-19-2021 End: 07-19-2021 ambulatory SANTHOSH ROBLEDO Facility:H1 Start: 07-17-2021 End: 07-17-2021 ambulatory SANTHOSH ROBLEDO Facility:H1 Start: 07-09-2021 End: 07-09-[address] EAN PATEL Facility:H1 Start: 07-08-2021 End: 07-08-2021 ambulatory Carlie Glez Other [facility] Other Start: 07-08-2021 Office outpatient vi sit 5 minutes Carlie Ginty [facility] [address] Payers Date Payer Category Payer Unknown [id number] 2.16.84 [id number] 1975 Unknown [id number] 2.16.84 [id number] 1975 Unknown [id number] 2.16.84 [id number] 1975 Unknown [id number] 2.16.84 [id number] 1959 Unknown [id number] [id number]. [id number] Social History Date Type Detail Facility Sex Assigned At [facility] Other Evaluation note 07-08-2021 Note Date & Type Note Facility 07-08-2021 Evaluation note Encounter Date Diagnosis Assessment Notes Jun, Close exposure to severe acute respiratory syndrome coronavirus 2 (SARS-CoV-2) (ICD-10 - Z20.828) Jun, Contact with and (suspected) exposure to other viral communicable diseases (ICD-10 - Z20.828) Jun, Other Additional time spent conducting pre-visit phone call, screening for symptoms, instructions on social distancing, application and removal of PPE, and cleaning of examination room, equipment and supplies was preformed. Patient education given for testing methodology and results. Patient care instructions given in writting by [facility] Care At Home document. [facility] Other Summary Purpose Family History No Family History Records Found Advance Directives No Advanced Directives Records Found Additional Source Comments REASON FOR VISIT (unrecogniz ed section and content) EXPOSURE INFORMATION SOURCE (unrecogn ized section and content) DATE CREATED AUTHOR 05/08/2022 Neema hudson FOR RECORDS PERTAINING TO PATIENTS WHO ARE OR HAVE BEEN ENROLLED IN A CHEMICAL DEPENDENCY/SUBSTANCEABUSE PROGRAM, SOME INFORMATION MAY BE OMITTED. This clinical summary was aggregated from multiple sources. Caution should be exercised in using it in the provision of clinical care. This summary normalizes information from multiple sources, and as a consequence, information in this document may materially change the coding, format and clinical context of patient data. In addition, data may be omitted in some cases. CLINICAL DECISIONS SHOULD BE BASED ON THE PRIMARY CLINICAL RECORDS. [facility]. provides no warranty or guarantee of the accuracy or completeness of information in this document.
[2025-03-18 11:28] LABS: Hematocrit 24.0 % (36.0-48.0); Immature Granulocytes Abs Auto 0.05 10^3/uL (0.00-0.03); Immature Granulocytes Pct Auto 0.6 % (0.0-0.5); Lymphocytes Absolute Auto 2.1 10^3/uL (1.2-3.8); Mean Corpuscular HGB Conc 27.9 g/dL (29.9-35.2); Mean Corpuscular Hemoglobin 16.5 pg (26.7-34.0); Mean Corpuscular Volume 59.3 fL (81.0-99.0); Platelet Count 505 10^3/uL (150-450); Red Blood Count 4.05 10^6/uL (4.20-5.40); White Blood Count 8.1 10^3/uL (4.0-11.0)
--- OUTSIDE RECORDS SUMMARY | 2025-03-18 12:56 | XMS_ITS | CCD ---
Author Organization [facility] Care Team Providers Care Neon Sign Servicer Name Role Phone Carlie Glez Unavailable SANTHOSH ROBLEDO Primary Care Unavailable SHAWNA, DR CARRIE Byers Admitting Unavailabl e CHRISECK, DR CARRIE Byers Attending Unavailabl e CHRISECK, DR CARRIE Byers Consulting Unavailabl e VENKAT, SANTHOSH Admitting Unavailable VENKAT, SANTHOSH Attending Unavailable VENKAT, SANTHOSH Primary Care Unavailable VENKAT, SANTHOSH Consulting Unavailable HOY, DR MCKOY Admitting Unavailable HOY, DR MCKOY Attending Unavailable VENKAT, SANTHOSH Primary Care Unavailable [...] JEREMIE BLOOM Date: 2022-05-03 14:31 Normal [facility] Covid-19 PCR ([facility])on SARS-CoV-2 (COVID-19) RNA ESTHER+probe Ql (Unsp spec) Detected Critically abnormal NOT DETECTED [facility] Comment on above: Result Comment: This test is not yet renata roved or cleared by the [place] FDA. When there are no FDA-approved or cleared tests available, and other criteria are met, FDA can make tests available under an emergency access mechanism called an Emergency Use Authorization (EUA). The EUA for this test is supported by the [place] of Health and Human Service's declaration that [...] longer be used). Performed By: #### [facility] #### [facility] [address] [place], [place] [address] Dr. Caro Rowland COVID Quick Testingon 2020 Result Negative [facility] Other Covid-19 PCR ([facility])on 06-16 SARS-CoV-2 (COVID-19) RNA ESTHER+probe Ql (Unsp spec) Not detected Normal NOT DETECTED [facility] Comment on above: Result Comment: This test is not yet renata roved or cleared by the [place] FDA. When there are no FDA-approved or cleared tests available, and other criteria are met, FDA can make tests available under an emergency access mechanism called an Emergency Use Authorization (EUA). The EUA for this test is supported by the Surveillance System [place] of Health and Human Service's (HHS's) declaration [...] consistent with SARS-CoV-2. Performed By: #### [facility] #### [facility] [address] [place], [place] [address] Dr. Caro Rowland Encounters Encounter Date Encounter Type Care Provider Facility Start: 05-03-2022 End: 05-03-2022 ambulatory SANTHOSH ROBLEDO Facility:H1 Start: 07-19-2021 End: 07-19-2021 ambulatory SANTHOSH ROBLEDO Facility:H1 Start: 07-17-2021 End: 07-17-2021 ambulatory SANTHOSH ROBLEDO Facility:H1 Start: 07-09-2021 End: 07-09-[address] EAN PATEL Facility:H1 Start: 07-08-2021 End: 07-08-2021 ambulatory Carlie Glez Other [facility] Other Start: 07-08-2021 Office outpatient vi sit 5 minutes Carlie Ginty [facility] [address] Payers Date Payer Category Payer Unknown [id number] 2.16.84 [id number] 1975 Unknown [id number] 2.16.84 [id number] 1975 Unknown [id number] 2.16.84 [id number] 1975 Unknown [id number] 2.16.84 [id number] 1959 Unknown [id number] 2.16. [id number] Social History Date Type Detail Facility Sex Assigned At [facility] Other Evaluation note 07-08-2021 Note Date & [...] Patient care instructions given in writting by [facility] Care [facility] Home document. [facility] Other Summary Purpose Family History No Family [...] BE BASED ON THE PRIMARY CLINICAL RECORDS. [facility] [employer] [facility]. provides no warranty or guarantee of the accuracy or completeness of information in this document.
[2025-03-18 13:21] LABS: Iron 12.0 ug/dL (50.0-170.0)
[2025-03-18 13:34] LABS: Hemoglobin 6.7 g/dL (12.0-16.0)
[2025-03-18 13:37] LABS: Alanine Aminotransferase 19 U/L (14-59); Albumin Globulin Ratio 0.6; Albumin Level 3.3 g/dL (3.4-5.0); Alkaline Phosphatase 77 U/L (46-116); Anion Gap 13.7; Aspartate Amino Transferase 13 U/L (15-37); Blood Urea Nitrogen 7.0 mg/dL (7.0-18.0); Calcium 9.2 mg/dL (8.5-10.1); Carbon Dioxide 25.2 mmol/L (21.0-32.0); Chloride 103 mmol/L (98-107); Cholesterol 245 mg/dL (<=200); Estimated GFR (African America >60 (>=60 mL/min/1.73m^2); Estimated GFR (Non-African Ame >60 (>=60 mL/min/1.73m^2); Free T3 2.86 pg/mL (2.18-3.98); Globulin 5.2 g/dL; Glucose 111 mg/dL (74-106); HDL Cholesterol 56 mg/dL (40-60); Potassium 3.9 mmol/L (3.5-5.1); Sodium 138 mmol/L (136-145); Thyroid Stimulating Hormone 2.762 uIU/mL (0.358-3.740); Total Protein 8.5 g/dL (6.4-8.2); Triglycerides 133 mg/dL (<=150); VLDL CHOLESTEROL 26.6 mg/dL
== END 2025-03-18 10:35 | disposition home or self-care (01) ==
LOC: LAB 10:34
PROVIDERS: PCP Nurse Practitioner Family; Visit Provider Nurse Practitioner Family
DX: Z00.00 Encounter for general adult medical examination without abnormal findings (principal)
CPT/HCPCS: 36415; 80053; 80061; 82306; 83036; 83525; 83540; 84436; 84443; 84481; 85025

== ENCOUNTER 2025-03-19 09:15 | Outpatient (RCR) | payer BC, SELFPAY ==
[2025-03-19] VITALS (7 sets, daily range): BP systolic 151–181; BP diastolic 78–87; PULSE 70–108; TEMP 36.4–37.2; O2SAT 96–98
[2025-03-19] MEDS: DIPHENHYDRAMINE HCL 25 MG CAPSULE PO (09:45)
[2025-03-19] MEDS: ACETAMINOPHEN 325 MG TABLET 650 MG PO (09:45)
[2025-03-19] MEDS: 0.9 % SODIUM CHLORIDE 250 ML 10 ML IV (09:45)
== END 2025-04-15 08:05 | disposition home or self-care (01) ==
LOC: LAB 09:15
PROVIDERS: PCP Nurse Practitioner Family; Visit Provider Family Medicine
DX: Z51.81 Encounter for therapeutic drug level monitoring (principal); D64.9 Anemia, unspecified
CPT/HCPCS: 36415; 36430; 86850; 86900; 86901; 86923; P9016

== ENCOUNTER 2025-03-20 15:10 | Outpatient (OUT) | payer BC, SELFPAY ==
--- OUTSIDE RECORDS SUMMARY | 2025-03-17 10:00 | XMS_ITS ---
Author Organization [facility] in [place] Address [address] [place] [id number] Care Team Providers Care Business Development Professional Name Role Phone Evelyne Lim Primary Care Provider Allergies No Known Allergies Reason For Referral Reason hx fibroid, did not follow up for surgery, saw terry Jean Diagnosis 1 Uterine fibroid (D25 .9) Referral Organization [facility] Medicine Referring Provider First Name Evelyne Referring Provider Last Name Raphael Referring Provider Speciality Family Med icine Referred Provider Tesfaye Raza Referred Provider Specialty OB - Gynecol ogy Referral Priority Routine REASON FOR VISIT off work note- tired, when on her menses makes her physically sick, Patient said she has not been taking the HCTZ or Irbesartan Medications Medication SIG (Take, Route, Fr equency, Duration) Notes Start Date End Date Status Omeprazole 40 MG TAKE 1 CAPSULE BY [facility] 30 MINUTES BEFORE morning meal Orally Once a day for 90 days Active Social History Tobacco Use: Social History Observation Description Date Details (start date - stop date) Former Smoker 07/16/1995 - 07/16/2019 Tobacco Use/Smoking Question Answer Notes Patient is a former smoker When did you start smoking? 07/16/1995 When did you stop smoking? 07/16/2019 Vital Signs Weight 252.0 lbs 03/17/2025 Height 63 in 03/17/2025 Blood pressure systolic 134 mm Hg 03/17/20 25 Blood pressure diastolic 82 mm Hg 025 Temperature 98.2 degrees Fahrenheit 03/17/20 25 Heart Rate 95 /min 03/17/2025 BMI 44.63 kg/m2 03/17/2025 Oximetry 98 % 03/17/2025 Encounters Encounter Location Date Provider Diagnosis [facility] [address] [place] [address] 03/17/2025 Evelyne Lim Anemia D64.9 ; Wellness examination Z00.00 and Uterine fibroid D25.9 Assessments Encounter Date Diagnosis (ICD Code) Assessment Notes Treatment Notes Treatment Clinical Notes Section Notes 03/17/2025 Anemia (ICD-10 - D64.9) checking labs repeat pelvic US? meron referral? 03/17/2025 Wellness examination (ICD-10 - Z00.00) 03/17/2025 Uterine fibroid (ICD-10 - D25.9) Plan Of Treatment Treatment Notes Assessment Notes Anemia checking labs repeat pelvic US? meron referral? Pending Test Test Name Order Date HEMOGLOBIN A1C (GLYCO) 03/17/2025 IRON, TOTAL 03/17/2025 LIPID PANEL (CHOL/TRIG/HDL/LDL) 03/17/20 25 VITAMIN D, 25 LEVEL (TOTAL) 03/17/2025 Insulin Level 03/17/2025 THYROID PANEL (T4/TSH/FREE T3) 5 CMP (COMP MET ROCHE) w/eGFR CKD-EPI 2024 CBC WITH DIFF 03/17/2025 Referrals Referral Date Details 03/17/2025 03/17/2025, hx fibro id, did not follow up for surgery, saw [place], anemia, Tesfaye Meron Next Appt Details Follow Up: prn,6 Months, Angelica son: Progress Notes * Vane SOTO RDOB:1975 (49 yo F)Acc No.[id number]:03/17/2025 Progress Note Patient: Vane HARRIS R Provider: Oscar Lim ([facility]), SCALP TREATMENT OPERATOR :1975 A ge:49 Y S ex:Female Date:03/17/2025 Address:[address] [place] [address] Darryl PÉREZ [id number] Check In:01:50 PM ESTCheck O ut:02:16 PM EST Subjective: * Chief Complaints: * 1 . Off work note- tired, when on her menses makes her physically sick. 2. Patient said she has not been taking the HCTZ or Irbesartan. * HPI: G eneral: ER in October hgb was 8, did not get labs repeated after that hx fibroid, was to have hx, did not had seen vasile feels ill whenever has period, heavy fatigue. * ROS: G eneral/Constitutional: Fatigue a dmits. F eeling Poorly a dmits. F ever d enies. H eadache d enies. W eight loss d enies. O phthalmologic: Discharge d enies. E ye Pain d enies. I tching and redness d enies. E NT: Nasal discharge d enies. N elizabet congestion d enies.?Sore throat d enies. C ardiovascular: Chest tightness/ heavy pressure d enies. R apid heart rate d enies. S welling of extremities d enies. C hest pain d enies. ? R espiratory: Productive cough d enies. C hest pain d enies. C ough d enies. S hortness of breath d enies. W heezing d enies. ? G astrointestinal: Abdominal pain d enies. C onstipation d enies. D ecreased appetite d enies. D iarrhea d enies. N ausea d enies. V omiting?denies. G enitourinary: Urinary incontinence d enies. H eavy Menstrual Cycles?admits. P ainful urination d enies. M usculoskeletal: Back pain d enies. N jerilyn pain d enies. M uscle aches d enies. S kin: Rash d enies. S kin lesion(s) d enies. ? * Active Problem List F41.9 Anxiety Modified On:08/09/2023W/U Status:confirmed D64.9 Anemia Modified On:08/09/2023/U Status:confirmed D25.9 Uterine fibroid Modified On:08/09/2023/U Status:confirmed R60.0 Edema of both legs Modified On:08/09/2023/U Status:confirmed F33.9 Depression, recurren t Modified On:08/09/2023/U Status:confirmed K21.9 GERD (gastroesophage al reflux disease) Modified On:08/09/2023/U Status:confirmed K57.92 Diverticulitis of in testine, part unspecified, without perforation or abscess without bleeding Modified On:03/28/2023/U Status:confirmed I10 HTN (hypertension) Modified On:11/11/2024/U Status:confirmed E66.01 Class 3 obesity Modified On:11/11/2024/U Status:confirmed * Medical History: B enign essential hypertension, Kidney stones, Uterine fibroid, Anemia, Anxiety, GERD (gastroesophageal reflux disease), Depression, recurrent, Edema of both legs. * Surgical History: T ubal , [employer] teeth . * Hospitalization/Major Diagno stic Procedure: D enies Past Hospitalization. * Family History: F ather: , emphysema, diagnosed with Diabetes mellitus without mention of complication, type II or unspecified type, not stated as uncontrolled, Unspecified heart disease. M other: , breast cancer, lymphoma, diagnosed with Other malignant neoplasm of unspecified site. B rother(s): alive, diagnosed with Unspecified heart disease. S on(s): alive. 2 brother(s) - healthy. 2 son(s) - healthy. . 1 broth passed from overdose. * Social History: T obacco Use: T obacco Use/Smoking P atient is a f ormer smoker W hen did you start smoking? 0 07/16/1995 W hen did you stop smoking? 0 07/16/2019 * Medications: T aking Omeprazole 40 MG Capsule Delayed Release TAKE 1 CAPSULE BY MOUTH 30 MINUTES BEFORE morning meal Orally Once a day , Discontinued hydroCHLOROthiazide 25 mg Tablet TAKE 1 TABLET BY MOUTH IN THE MORNING , Discontinued Irbesartan 150 mg Tablet TAKE 1 TABLET BY MOUTH ONCE DAILY , Discontinued Naproxen 500 MG Tablet 1 tablet with food or milk Oral BID prn , Medication List reviewed and reconciled with the patient * Allergies: N .K.D.A. Objective: * Vitals: W t:252.0lbs, Ht: 63 in, BP:134/82mm Hg, Temp:98.2F, HR:95/min, BMI:44.63Index, Oxygen sat %:98%, Ht-cm: 160.02 cm, Wt-k.31 kg. * Examination: G eneral Examinations: GENERAL APPEARANCE: a lert and oriented, in no acute distress, obese, pale, Looks Tired. EYES: c onjunctiva normal, sclera non-icteric. NOSE: n ormal external appearance. LUNGS: c lear to auscultation bilaterally. CARDIO: r egular rate and rhythm, S1, S2 normal. ABDOMEN: o bese. MUSCULOSKELETAL: G ait and station normal. SKIN: w arm and dry. Assessment: * Assessment: 1. A nemia - D64.9 (Primary) 2 . W ellness examination - Z00.00 ?3. U terine fibroid - D25.9 Plan: * Treatment: 2. W ellness examination L AB: HEMOGLOBIN A1C (GLYCO) L AB: IRON, TOTAL L AB: LIPID PANEL (CHOL/TRIG/HDL/LDL) L AB: VITAMIN D, 25 LEVEL (TOTAL) L AB: Insulin Level L AB: THYROID PANEL (T4/TSH/FREE T3) L AB: CMP (COMP MET ROCHE) w/eGFR CKD-EPI L AB: CBC WITH DIFF 3. U terine fibroid Referral To:Tesfaye Raza OB - Gynecology Reason:hx fibroid, did not follow up for surgery, saw Vasile, anemia * Preventive Medicine: Screenings/Counseling: B MT ACTION PLAN Above Normal BMI Follow-up D ietary management education, guidance, and counseling * Follow Up: p rn,6 Months * * Electronically signed by Jeri Lim , ODESSA, LOAN COLLECTOR.SCALP TREATMENT OPERATOR.[id number] on 03/19/2025 at 11:56 AM EDT Sign off status: Completed Visit Status: C HK (Check Out) true * Provider: Oscar Lim ([facility]), SCALP TREATMENT OPERATOR Date: 03/17/2025 Generated for Keyana moran/Louie/eTransmitting on: 03/20/2025 03:14 PM EDT History and Physical Notes * HPI (History of Present Illness) Category Sub-Category Detail Notes Category Not es General ER in October hgb was 8, did not get labs repeated after that hx fibroid, was to have hx, did not had seen vasile feels ill whenever has period, heavy fatigue Examination Category Sub-Category Detail Notes Category Not es General Examinations GENERAL APPEARANCE: alert a nd oriented, in no acute distress, obese, pale, Looks Tired EYES: conjunctiva normal, sclera non-icteric EARS: NOSE: normal external appe arance THROAT: CARDIO: regular rate and rhy thm, S1, S2 normal LUNGS: clear to auscultatio n bilaterally ABDOMEN: obese SKIN: warm and dry BACK: MUSCULOSKELETAL: Gait and station nor mal LYMPH NODES: Consultation Request Notes Referral Date Referring Provider Referred Provider Not es 03/17/2025 Evelyne Lim Corey hx fibroid, d id not follow up for surgery, saw terry Jean
--- OUTSIDE RECORDS SUMMARY | 2025-03-18 09:35 | XMS_ITS ---
Author Organization The [facility] in [place] Address [address] [place] [address] Care Team Providers Care Automobile Seat Cover Installer Name Role Phone Evelyne Lim Primary Care Provider REASON FOR VISIT CRITICAL HGB Encounters Encounter Location Date Provider Diagnosis [facility] [address] [place] [address] 03/18/2025 Evelyne Lim Anemia D64.9 and Uterine fibroid D25.9 Assessments Encounter Date Diagnosis (ICD Code) Assessment Notes Treatment Notes Treatment Clinical Notes Section Notes 03/18/2025 Anemia (ICD-10 - D64.9) 03/18/2025 Uterine fibroid (ICD-10 - D25.9) Plan Of Treatment Pending Test Test Name Order Date CBC AUTO DIFF 03/18/2025 FERRITIN 03/18/2025 IRON 03/18/2025 US PELVIS AND TRANSVAG 03/18/2025 Progress Notes * Vane SOTO RDOB:1975 (49 yo F)Acc No.[id number]:03/18/2025 Patient: Oniel SETHVane :1975 A ge:49 Y S ex:Female Address:[address] [place] [address] Subjective: * Chief Complaints: * C RITICAL HGB * Medical History: * Surgical History: * Hospitalization/Major Diagno stic Procedure: * Medications: Objective: * Vitals: * Physical Examination: Assessment: * Assessment: 1. A nemia - D64.9 (Primary) 2 . U terine fibroid - D25.9 Plan: * Treatment: 2. U terine fibroid I maging: US PELVIS AND TRANSVAG * Procedure Codes: * true * Date: Generated for Keyana moran/Louie/Ron on: 0 03/20/2025 03:14 PM EDT
--- OUTSIDE RECORDS SUMMARY | 2025-03-19 10:00 | XMS_ITS ---
Author Organization The [facility] in [place] Address [address] [place] [address] Care Team Providers Care Alterations Supervisor Name Role Phone Evelyne Lim Primary Care Provider [phone] Allergies No Known Allergies REASON FOR VISIT Presents to office with boyfriend for f/u after having a blood transfusion today Medications Medication SIG (Take, Route, Fr equency, Duration) Notes Start Date End Date Status Omeprazole 40 MG TAKE 1 CAPSULE BY [facility] 30 MINUTES BEFORE morning meal Orally Once a day for 90 days Active Social History Tobacco Use: Social History Observation Description Date Details (start date - stop date) Former Smoker 07/16/1995 - 07/16/2019 Tobacco Use/Smoking Question Answer Notes Patient is a former smoker When did you start smoking? 07/16/1995 When did you stop smoking? 07/16/2019 AUDIT-C (Standard) Question Answer Notes Did you have a drink containing alcohol in the p ast year? No Points 0 Interpretation Negative Problems Problem Type SNOMED Code ICD Code Onset Dates Problem Status W/U Status Risk Notes Problem Hyperlipidemia (89236422) Hyperlipidemia (E78.5) Active confirmed Vital Signs Weight 255.8 lbs 03/19/2025 Height 63 in 03/19/2025 Blood pressure systolic 138 mm Hg 03/19/20 25 Blood pressure diastolic 72 mm Hg 025 BMI 45.31 kg/m2 03/19/2025 Encounters Encounter Location Date Provider Diagnosis [facility] [address] [place] [address] 03/19/2025 Evelyne Lim Anemia D64.9 Assessments Encounter Date Diagnosis (ICD Code) Assessment Notes Treatment Notes Treatment Clinical Notes Section Notes 03/19/2025 Anemia (ICD-10 - D64.9) likely due to heavy menses, fibroid upcoming US and referral Luz Marina had 2u prbc today, repeat labs tomorrow Plan Of Treatment Treatment Notes Assessment Notes Anemia likely due to heavy menses, fibroid upcoming US and referral Luz Marina had 2u prbc today, repeat labs tomorrow Next Appt Details Follow Up: prn,1 Week, Reaso n: Progress Notes * Vane SOTO RDOB:1975 (49 yo F)Acc No.[id number]:03/19/2025 UNLOCKED PROGRESS NOTE Progress Note Patient: Vane HARRIS Provider: Oscar Lim ([facility]), LIVESTOCK BREEDER :1975 A ge:49 Y S ex:Female Date:03/19/2025 Address:[address] [place] [address], [facility] Check In:01:48 PM ESTCheck O ut:02:17 PM EST Subjective: * Chief Complaints: * 1 . Presents to office with boyfriend for f/u after having a blood transfusion today. * HPI: G eneral: had blood transfusion today was stressful labs tomorrow discussed upcoming US and referral Luz Marina discussed other lab results, will discuss cholesterol and tx at furthur date. * ROS: G eneral/Constitutional: Fatigue a dmits. A nxiety s tress with health issues right now. F ever d enies. H eadache d enies. W eight loss d enies. ? O phthalmologic: Discharge d enies. E ye [...] omiting?denies. G enitourinary: Urinary incontinence d enies. P ainful urination d enies. M usculoskeletal: Back pain d enies. N jerilyn pain d enies. M uscle aches d enies. S kin: Rash d enies. S kin lesion(s) d enies. ? * Medical History: B enign essential hypertension, Kidney stones, Uterine fibroid, Anemia, Anxiety, GERD (gastroesophageal reflux disease), Depression, recurrent, Edema of both legs. * Surgical History: T ubal , [place] teeth . * Family History: F ather: , emphysema, diagnosed with Unspecified heart disease, Diabetes mellitus without mention of complication, type II or unspecified type, not stated as uncontrolled. M other: , breast cancer, lymphoma, diagnosed [...] hen did you stop smoking? 0 07/16/2019 D rug/Alcohol: A MAIDA-C (Standard) D id you have a drink containing alcohol in the past year? N o P oints 0 I nterpretation N egative * Medications: T aking Omeprazole 40 MG Capsule Delayed Release TAKE 1 CAPSULE BY MOUTH 30 MINUTES BEFORE morning meal Orally Once a day , Medication List reviewed and reconciled with the patient * Allergies: N .K.D.A. Objective: * Vitals: W t:255.8lbs, Ht: 63 in, BP:138/72mm Hg, BMI:45.31Index, Ht-cm: 160.02 cm, Wt-k.03 kg. * Examination: G eneral Examinations: GENERAL APPEARANCE: a lert and oriented, in no acute distress, has a little pink in cheeks today, Looks Tired. EYES: c onjunctiva normal, sclera non-icteric. NOSE: n ormal external appearance. THROAT: n ormal. LUNGS: c lear anteriorly and posteriorly. CARDIO: r egular rate and rhythm, S1, S2 normal. MUSCULOSKELETAL: G ait and station normal. SKIN: w arm and dry. Assessment: * Assessment: 1. A nemia - D64.9 (Primary) Plan: * Treatment: * Preventive Medicine: Screenings/Counseling: B TX ACTION PLAN Above Normal BMI Follow-up D ietary management education, guidance, and counseling See treatment section of progress note for complete details of management plan. * Follow Up: p rn,1 Week * * Electronic signature of Ivon Juan NP, [email or web address] on 03/20/2025 at 03:14 PM EDT Sign off status: Pending Visit Status: C HK (Check Out) * Provider: Oscar Lim ([facility]), LIVESTOCK BREEDER Date: 03/19/2025 Generated for Keyana moran/Louie/eTransmitting on: 03/20/2025 03:14 PM EDT History and Physical Notes * HPI (History of Present Illness) Category Sub-Category Detail Notes Category Not es General had blood transfusion today was stressful labs tomorrow discussed upcoming US and referral Luz Marina discussed other lab results, will discuss cholesterol and tx at furthur date Examination Category Sub-Category Detail Notes Category Not es General Examinations GENERAL APPEARANCE: alert a nd oriented, in no acute distress, has a little pink in cheeks today, Looks Tired EYES: conjunctiva normal, sclera non-icteric EARS: NOSE: normal external appe arance THROAT: normal CARDIO: regular rate and rhy thm, S1, S2 normal LUNGS: clear anteriorly and posteriorly ABDOMEN: SKIN: warm and dry BACK: MUSCULOSKELETAL: Gait and station nor mal LYMPH NODES:
--- OUTSIDE RECORDS SUMMARY | 2025-03-19 10:17 | XMS_ITS ---
Author Organization The [facility] in [place] Address [address] [place] [address] Care Team Providers Care Manager Database Name Role Phone Evelyne Lim Primary Care Provider [phone] REASON FOR VISIT orders Encounters Encounter Location Date Provider Diagnosis [facility] [address] [place] [address] 03/19/2025 Evelyne Lim Plan Of Treatment No Information Progress Notes * Vane SOTO RDOB:1975 (49 yo F)Acc No.[id number]:03/19/2025 Patient: Vane HARRIS :1975 A ge:49 Y S ex:Female Address:[address] [address] * true * Date: Generated for Keyana moran/Louie/eTransmitting on: 0 03/20/2025 03:15 PM EDT
--- NOTE | 2025-03-20 | US_ITS ---
The [address] [address] Patient Name: MELVA HARRISON MRN: [id number] date: 1975 Sex: F Assigned Patient Location: US Current Patient Location: US Accession/Order Number: [id number] Exam Date: 03/20/2025 16:27 Report Date: 03/20/2025 17:31 At the request of: SANTHOSH ROBLEDO Procedure: US pelvis w/ transvaginal TRANSABDOMINAL AND TRANSVAGINAL PELVIC ULTRASOUND HISTORY: History of uterine fibroid FINDINGS: The uterus measures 8.5 x 4.3 x 5.2 cm. Hyperechoic previously visualized uterine lesion measures 3.6 x 2.3 x 2.8 cm. The endometrium has a total combined thickness of 5mm. The RIGHT ovary measures 2.5 x 2.0 x 1.8 cm. LEFT ovary measures 3.5 x 2.4 x 2.9 cm. Bilateral ovarian blood flow identified. Dominant right ovarian follicle. 2.7 cm anechoic left ovarian cyst. Right ovary resistive index 0.5 and left 0.7. No free fluid identified. There is no adnexal mass identified. US/US pelvis w/ transvaginal IMPRESSION: 3.6 cm uterine fibroid. 2.7 cm anechoic left ovarian cyst. Impression dictated by: Elton Nunez M.D. 03/20/2025 5:31 PM Dictation Location: [place] [address] Electronically authenticated by: [id number] Y Date: 03/20/2025 17:31
--- OUTSIDE RECORDS SUMMARY | 2025-03-20 15:14 | XMS_ITS | Clinical Summary ---
Author Organization [facility] Address [address] [place] [address] Care Team Providers Care Crisis Manager Name Role Phone Unavailable Primary Care Provider Unavailabl e Social History Tobacco Use Types Packs/Day Years Used Date Smoking Tobacco: Never Assessed Comments Unknown Sex and Gender Information Value Date Recorded Sex Assigned at Not on file Legal Sex Female 6:39 PM EDT Gender Identity Not on file Sexual Orientation Not on file Plan of Treatment Not on file
--- OUTSIDE RECORDS SUMMARY | 2025-03-20 15:15 | XMS_ITS | Patient Health Record ---
Author Organization [facility] in [place] Address [address] [place] [address] Care Team Providers Care Warehouse Packer Name Role Phone Evelyne Lim Primary Care Provider Allergies No Known Allergies Results Component Value Reference Range Notes CBC AUTO DIFF Reviewed date:11/13/2024 01:43:34 PM Interpretation: Performing Lab: Notes/Report: [facility] , White Blood Count 9.9 4.0-11.0 10 3/uL Red Blood Count 4.53 4.20-5.40 10 6/uL 1+ OVALOCYTES 2+ MICROCYTOSIS 2+ ANSIOCYTOSIS Hemoglobin 8.0 12.0-16.0 g/dL Hematocrit 27.0 36.0-48.0 % Mean Corpuscular Volume 59.6 81.0-99.0 fL Mean Corpuscular Hemoglobin 17.7 26.7-34.0 pg Mean Corpuscular HGB Conc 29.6 29.9-35.2 g/dL Red Cell Distribution Width 20.0 11.0-15.0 % Platelet Count 474 150-450 10 3/uL Mean Platelet Volume 9.1 9.5-13.5 fL Neutrophils Percent Auto 70.0 43.0-75.0 % Lymphocytes Percent Auto 20.1 20.5-60.0 % Monocytes Percent Auto 8.0 1.7-12.0 % Eosinophils Percent Auto 1.0 0.9-7.0 % Basophils Percent Auto 0.5 0.2-2.0 % Immature Granulocytes Pct Auto 0.4 0.0-0.5 % Neutrophils Absolute Auto 6.9 1.4-6.5 10 3/uL Lymphocytes Absolute Auto 2.0 1.2-3.8 10 3/uL Monocytes Absolute Auto 0.8 0.3-0.8 10 3/uL Eosinophils Absolute Auto 0.1 0.0-0.7 10 3/uL Basophils Absolute Auto 0.1 0.0-0.1 10 3/uL Immature Granulocytes Abs Auto 0.04 0.00-0.03 10 3/uL Performing Lab: see note - [facility] LB D-DIMER Reviewed date:11/13/2024 01:43:34 PM Interpretation: Performing Lab: Notes/Report: [facility] , D Dimer 0.52 <=0.59 mg/L FEU or anticoagulant therapy, stress, and generalized hematoma, DIC, trauma, post-surgery, diabetes, thrombolytic size, and age of the thrombus. Therefore, a thromboembolic of disorders including advanced age, , coronary thromboembolic events can be variable due to localization, disease, cancer, liver disease, infection, inflammation, Increases in D-Dimer concentration observed with event cannot be diagnosed with certainty on the basis of the hospitalization. reference range. D-Dimers may also be elevated for a variety Performing Lab: see note - [facility] LB ECG 12 lead Reviewed date:11/13/2024 01:43:34 PM Interpretation: Performing Lab: Notes/Report: Source Facility: [address] [address] [place] [address] Electrocardiograph Report Signed Patient: VANE SOTO MR#: [id number] : 1975 Acct:[id number] Age/Sex: 48 / F ADM Date: 11/12/24 Loc: ER Attending Dr: Ordering Physician: Jessica Lou D.O. Date of Service: 11/12/24 Procedure(s): ECG 12 lead Accession Number(s): [id number] cc: [facility] Test Date: 2024-11-12 Pat Name: VANE SOTO Department: Room: - Gender: Female Rosin Barrel Filler: : 1975 Requested By: [id number] Order Number: [id number] Milla MD: VICKI MOUKARBEL, M.D. Measurements Intervals [place] Rate: 89 P: 49 TN: 154 QRS: 75 QRSD: 88 T: 39 QT: 372 QTc: 419 Interpretive Statements 1100 Sinus rhythm 9110 normal ECG Compared to ECG 09/22/2018 21:16:18 No significant changes Electronically Signed On 11-12-2024 21:08:07 EDT by VICKI MACKENZIE M.D. Dictated By: VICKI MACKENZIE Signed By: 11/12/242107 DD/ 5 TD/TT: Property Administrator: [place] [address] Electrocardiograph Report Signed Patient: VANE SOTO MR#: [id number] : 1975 Acct:[id number] Age/Sex: 48 / F ADM Date: 11/12/24 Loc: ER Attending Dr: Ordering Physician: Jessica Lou D.O. Date of Service: 11/12/24 Procedure(s): ECG 12 lead Accession Number(s): [id number] cc: [facility] Test Date: 2024-11-12 Pat Name: VANE Corado Department: 62 Room: - Gender: Female Rosin Barrel Filler: : 1975 Requ ested By: [id number] Order Number: [id number] Reading MD: VICKI MACKENZIE M.D. Measurements Intervals [place] Rate: 89 P: 49 TN: 154 QRS: 75 QRSD: 88 T: 39 QT: 372 QTc: 419 Interpretive Statements 1100 Sinus rhythm 9110 normal ECG Compared to ECG 09/22/2018 21:16:18 No significant changes Electronically Adia d On 11-12-2024 21:08:07 EDT by VICKI MACKENZIE M.D. Dictated By: VICKI MACKENZIE Signed By: 11/12/242107 DD/ 5 TD/TT: Property Administrator: CBC AUTO DIFF Reviewed date:03/19/2025 12:37:16 PM Interpretation: Performing Lab: Notes/Report: [facility] , White Blood Count 8.1 4.0-11.0 10 3/uL Red Blood Count 4.05 4.20-5.40 10 6/uL Hemoglobin 6.7 12.0-16.0 g/dL RESULTS JEFFERY Sinha TO PRASAD MERCEDES RN Hematocrit 24.0 36.0-48.0 % Mean Corpuscular Volume 59.3 81.0-99.0 fL Mean Corpuscular Hemoglobin 16.5 26.7-34.0 pg Mean Corpuscular HGB Conc 27.9 29.9-35.2 g/dL Red Cell Distribution Width 20.2 11.0-15.0 % Platelet Count 505 150-450 10 3/uL Mean Platelet Volume 9.6 9.5-13.5 fL Neutrophils Percent Auto 66.9 43.0-75.0 % Lymphocytes Percent Auto 25.2 20.5-60.0 % Monocytes Percent Auto 5.8 1.7-12.0 % Eosinophils Percent Auto 1.1 0.9-7.0 % Basophils Percent Auto 0.4 0.2-2.0 % Immature Granulocytes Pct Auto 0.6 0.0-0.5 % Neutrophils Absolute Auto 5.4 1.4-6.5 10 3/uL Lymphocytes Absolute Auto 2.1 1.2-3.8 10 3/uL Monocytes Absolute Auto 0.5 0.3-0.8 10 3/uL Eosinophils Absolute Auto 0.1 0.0-0.7 10 3/uL Basophils Absolute Auto 0.0 0.0-0.1 10 3/uL Immature Granulocytes Abs Auto 0.05 0.00-0.03 10 3/uL Performing Lab: see note ML - [facility] FREE T3 Reviewed date:03/19/2025 12:37:16 PM Interpretation: Performing Lab: Notes/Report: [facility] , Free T3 2.86 2.18-3.98 pg/mL Performing Lab: see note ML - [facility] LB GLYCOHEMOGLOBIN A1C Reviewed date:03/19/2025 12:37:16 PM Interpretation: Performing Lab: Notes/Report: [facility] , Glycohemoglobin A1C 4.8 4.5-6.2 % ADA RECOMMENDED LIMIT 4.0 - 6.0 ADA THERAPEUTIC TARGET < 7.0 > 7.0 ACTION SUGGESTED Estimated Average Glucose 91 Performing Lab: see note ML - [facility] LB INSULIN Reviewed date:03/19/2025 12:37:16 PM Interpretation: Performing Lab: Notes/Report: [facility] , Insulin 21.9 2.6-24.9 uIU/mL Performed at: [facility] Railroad Signal Operator: Jose Ballard PhD, Phone: [phone] [address] [place], [place] [id number] Performing Lab: see note LC - [facility] LB IRON Reviewed date:03/19/2025 12:37:16 PM Interpretation: Performing Lab: Notes/Report: [facility] , Iron 12.0 50.0-170.0 ug/dL Performing Lab: see note ML - [facility] LB LIPID PROFILE Reviewed date:03/19/2025 12:37:16 PM Interpretation: Performing Lab: Notes/Report: [facility] , Triglycerides 133 <=150 mg/dL Cholesterol 245 <=200 mg/dL HDL Cholesterol 56 40-60 mg/dL > or =60 mg/dl - LOW CARDIOVASCULAR RISK <40 mg/dl - HIGH CARDIOVASCULAR RISK LDL Cholesterol Calculated 163.0 160-189 mg/dl HIGH 130-159 mg/dl BORDERLINE HIGH 100-129 mg/dl NEAR OR ABOVE OPTIMAL <100 mg/dl OPTIMAL >190 mg/dl VERY HIGH VLDL CHOLESTEROL 26.6 Chol HDL Ratio 4.4 3.3 - 4.4 LOW RISK >11.0 HIGH RISK 4.4 - 7.1 AVERAGE RISK 7.1 - 11.0 MODERATE RISK Performing Lab: see note - [facility] LB PROF 14(COMP METB) Reviewed date:03/19/2025 12:37:16 PM Interpretation: Performing Lab: Notes/Report: [facility] , Sodium 138 136-145 mmol/L Potassium 3.9 3.5-5.1 mmol/L Chloride 103 98-107 mmol/L Carbon Dioxide 25.2 21.0-32.0 mmol/L Anion Gap 13.7 Glucose 111 74-106 mg/dL Blood Urea Nitrogen 7.0 7.0-18.0 mg/dL Creatinine 0.60 0.55-1.02 mg/dL Estimated GFR ( Yasmine >60 >=60 mL/min/1.73m 2 Estimated GFR (Non- Bailey >60 >=60 mL/min/1.73m 2 BUN Creatinine Ratio 11.7 Calcium 9.2 8.5-10.1 mg/dL Bilirubin Total 0.3 0.2-1.0 mg/dL Aspartate Amino Transferase 13 15-37 U/L Alanine Aminotransferase 19 14-59 U/L Alkaline Phosphatase 77 46-116 U/L Total Protein 8.5 6.4-8.2 g/dL Albumin Level 3.3 3.4-5.0 g/dL Globulin 5.2 Albumin Globulin Ratio 0.6 Performing Lab: see note ML - [facility] LB T4 Reviewed date:03/19/2025 12:37:16 PM Interpretation: Performing Lab: Notes/Report: [facility] , T4 Thyroxine 10.20 4.80-13.90 ug/dL Performing Lab: see note ML - [facility] LB TSH Reviewed date:03/19/2025 12:37:16 PM Interpretation: Performing Lab: Notes/Report: [facility] , Thyroid Stimulating Hormone 2.762 0.358-3.740 uIU/mL Performing Lab: see note ML - [facility] LB VITAMIN D 25 [place] Reviewed date:03/19/2025 12:37:16 PM Interpretation: Performing Lab: Notes/Report: [facility] , Vitamin D 8.1 30-100 ng/mL Vit D sufficient 20-<30 ng/mL Vit D insufficient <20 ng/mL Vit D deficient >100 ng/mL Potential Toxicity Performing Lab: see note ML - [facility] LB Second ABO/RH Type Reviewed date:03/19/2025 12:37:16 PM Interpretation: Performing Lab: Notes/Report: [facility] , Blood Type #2 B Positive Packed Red Blood Cells Reviewed date:03/19/2025 03:34:21 PM Interpretation: Performing Lab: Notes/Report: Packed Red Blood Cells TRANSFUSED 03/19/25 1131 [id number] OP RC TRANSFUSED 03/19/25 0958 [id number] OP RC Type and Screen Reviewed date:03/19/2025 03:34:21 PM Interpretation: Performing Lab: Notes/Report: [facility] , Blood Type B Positive Antibody Screen NEGATIVE Troponin I High Sensitivity Reviewed date:11/13/2024 01:43:34 PM Interpretation: Performing Lab: Notes/Report: [facility] , Troponin I High Sensitivity <4.0 4.0-51.3 pg/mL USED IN ISOLATION BUT SHOULD BE INTERPRETED IN CONJUNCTION REFERENCE LIMIT (URL) OF TROPONIN, DEFINED THE 99TH DIAGNOSIS. PERCENTILE OF cTnI DISTRIBUTION IN A REFERENCE POPULATION, UNIVERSAL DEFINITION OF MYOCARDIAL INFARCTION. THE UPPER HAS BEEN CONFIRMED THE DECISION THRESHOLD FOR [place] WITH OTHER DIAGNOSTIC AND CLINICAL INFORMATION. CUT-OFF POINTS HAVE BEEN ESTABLISHED BASED ON THE FOURTH 99TH PERCENTILE = 51.4 PG/ML NOTE: HIGH-SENSITIVITY TROPONIN ASSAY IS NOT INTENDED TO BE Performing Lab: see note ML - [facility] LB PROF 14(COMP METB) Reviewed date:11/13/2024 01:43:34 PM Interpretation: Performing Lab: Notes/Report: [facility] , Sodium 136 136-145 mmol/L Potassium 3.4 3.5-5.1 mmol/L Chloride 98 98-107 mmol/L Carbon Dioxide 26.8 21.0-32.0 mmol/L Anion Gap 14.6 Glucose 113 74-106 mg/dL Blood Urea Nitrogen 12.0 7.0-18.0 mg/dL Creatinine 0.64 0.55-1.02 mg/dL Estimated GFR ( Yasmine >60 >=60 mL/min/1.73m 2 Estimated GFR (Non- Bailey >60 >=60 mL/min/1.73m 2 BUN Creatinine Ratio 18.8 Calcium 8.7 8.5-10.1 mg/dL Bilirubin Total 0.3 0.2-1.0 mg/dL Aspartate Amino Transferase 12 15-37 U/L Alanine Aminotransferase 17 14-59 U/L Alkaline Phosphatase 82 46-116 U/L Total Protein 8.1 6.4-8.2 g/dL Albumin Level 3.2 3.4-5.0 g/dL Globulin 4.9 Albumin Globulin Ratio 0.7 Performing Lab: see note ML - [facility] LB Reason For Referral Reason hx fibroid, did not follow up for surgery, saw terry Jean Diagnosis 1 Uterine fibroid (D25 .9) Referral Organization [facility] Referring Provider First Name Evelyne Referring Provider Last Name Raphael Referring Provider Speciality [facility] lawanda Referred Provider Tesfaye Raza Referred Provider Specialty OB - Gynecol ogy Referral Priority Routine Medications Medication SIG (Take, Route, Fr equency, Duration) Notes Start Date End Date Status Omeprazole 40 MG TAKE 1 CAPSULE BY MALCOLM NAYAK 30 MINUTES BEFORE morning meal Orally Once a day for 90 days Active Social History Tobacco Use: Social History Observation Description Date Details (start date - stop date) Former Smoker 07/16/1995 - 07/16/2019 Tobacco Use/Smoking Question Answer Notes Patient is a former smoker When did you start smoking? 07/16/1995 When did you stop smoking? 07/16/2019 Alcohol Screen (Audit-C) Question Answer Notes Did you have a drink containing alcohol in the p ast year? No Points 0 Interpretation Negative AUDIT-C (Standard) Question Answer Notes Did you have a drink containing alcohol in the p ast year? No Points 0 Interpretation Negative Problems Problem Type SNOMED Code ICD Code Onset Dates Problem Status W/U Status Risk Notes Problem 350903038 Diverticulitis o f intestine, part unspecified, without perforation or abscess without bleeding (K57.92) Active confirmed Problem Hyperlipidemia (64509162) Hyperlipidemia (E78.5) Active confirmed Problem Gastroesophageal reflux disease (434370251) GERD (gastroesophageal reflux disease) (K21.9) Active confirmed Problem Hypertension (48517212) HTN (hypertension) (I10) Active confirmed Problem Anxiety (09793288) Anxiety (F41.9) Active confi rmed Problem Anemia (912563955) Anemia (D64.9) Active confir med Problem Uterine fibroid (40583287) Uterine fibroid (D25.9) Active confirmed Problem Edema (247883857) Edema of both legs (R60.0) Active confirmed Problem Recurrent major depression (05843783) Depression, recurrent (F33.9) Active confirmed Problem Morbid obesity (811577237) Class 3 obesity (E66.01) Active confirmed Vital Signs Heart Rate 95 /min 03/17/2025 Temperature 98.2 degrees Fahrenheit 03/17/2025 Oximetry 98 % 03/17/2025 Blood pressure diastolic 72 mm Hg 03/19/2025 Height 63 in 03/19/2025 Blood pressure systolic 138 mm Hg 03/19/2025 Weight 255.8 lbs 03/19/2025 BMI 45.31 kg/m2 03/19/2025 Encounters Encounter Location Date Provider Diagnosis [id number] [place] [address] 11/11/2024 Evelyne Lim Wellness examination Z00.00 ; GERD (gastroesophageal reflux disease) K21.9 ; HTN (hypertension) I10 and Class 3 obesity E66.01 [facility] [address] [place] [address] 03/17/2025 Eveylne Lim Anemia D64.9 ; Wellness examination Z00.00 and Uterine fibroid D25.9 [facility] [address] [place] [address] 03/19/2025 Evelyne Lim Anemia D64.9 [facility] [address] [place] [address] 09/02/2024 Evelyne Lim [facility] [address] [place] [address] 11/12/2024 Evelyne Lim [facility] [address] [place] [address] 11/13/2024 Evelyne Lim Anemia D64.9 [facility] [address] [place] [address] 11/13/2024 Evelyne Lim [facility] [address] [place] [address] 03/18/2025 Evelyne Lim [facility] [address] [place] [address] 03/18/2025 Evelyne Lim Anemia D64.9 and Uterine fibroid D25.9 [facility] [address] [place] [address] 03/19/2025 Evelyne Lim Assessments Encounter Date Diagnosis (ICD Code) Assessment Notes Treatment Notes Treatment Clinical Notes Section Notes 11/11/2024 Wellness examination (ICD-10 - Z00.00) ROS done exam done encouraged pap and mammogram, fu OBGYN 11/11/2024 GERD (gastroesophagea l reflux disease) (ICD-10 - K21.9) 03/19/2025 Anemia (ICD-10 - D64.9) likely due to heavy menses, fibroid upcoming US and referral Meron had 2u prbc today, repeat labs tomorrow 11/13/2024 Anemia (ICD-10 - D64.9) 03/18/2025 Anemia (ICD-10 - D64.9) 03/18/2025 Uterine fibroid (ICD-10 - D25.9) 03/17/2025 Anemia (ICD-10 - D64.9) checking labs repeat pelvic US? meron referral? 03/17/2025 Wellness examination (ICD-10 - Z00.00) 03/17/2025 Uterine fibroid (ICD-10 - D25.9) 11/11/2024 HTN (hypertension) (ICD-10 - I10) start irbesartan, was not taking, fu 2 weeks 11/11/2024 Class 3 obesity (ICD-10 - E66.01) handouts given checking labs discussed med options fu 2 weeks Plan Of Treatment Pending Test Test Name Order Date HEMOGLOBIN A1C (GLYCO) 11/11/2024 HEMOGLOBIN A1C (GLYCO) 03/17/2025 IRON, TOTAL 03/17/2025 IRON, TOTAL 11/11/2024 LIPID PANEL (CHOL/TRIG/HDL/LDL) 11/12/19 25 LIPID PANEL (CHOL/TRIG/HDL/LDL) 03/17/20 25 VITAMIN D, 25 LEVEL (TOTAL) 11/11/2024 VITAMIN D, 25 LEVEL (TOTAL) 03/17/2025 OCCULT BLOOD, STOOL 11/13/2024 Insulin Level 03/17/2025 Insulin Level 11/11/2024 CBC AUTO DIFF 03/18/2025 FERRITIN 03/18/2025 IRON 03/18/2025 US PELVIS AND TRANSVAG 03/18/2025 THYROID PANEL (T4/TSH/FREE T3) THYROID PANEL (T4/TSH/FREE T3) CMP (COMP MET ROCHE) w/eGFR CKD-EPI 2024 CMP (COMP MET ROCHE) w/eGFR CKD-EPI 2024 CBC WITH DIFF 03/17/2025 CBC WITH DIFF 11/11/2024 Insurance Providers Payer Name Payer Address Payer Phone Subscriber Number Group Number Insured Name Patient Relationship to Insured Coverage Start Date Coverage End Date BCBS OUT OF STATE [address] [place] [phone] [id number] Vane Soto Self - patient is the insured 2022 Medical (General) History Medical History History ICD Code Benign essential hypertension I10 Kidney stones N20.0 Uterine fibroid D25.9 Anemia D64.9 Anxiety F41.9 GERD (gastroesophageal reflux disease) K 21.9 Depression, recurrent F33.9 Edema of both legs R60.0 Surgical History Surgery Date(Month/Year) Tubal [place] teeth
--- OUTSIDE RECORDS SUMMARY | 2025-03-20 15:20 | XMS_ITS | CCD ---
Author Organization [facility] Inform ion Partnership [facility] Care Team Providers Care Loom Control Chain Builder Name Role Phone Carlie Glez Unavailable SANTHOSH [...] JEREMIE BLOOM Date: 2022-05-03 14:31 Normal [facility] Covid-19 PCR ([facility])on SARS-CoV-2 (COVID-19) RNA ESTHER+probe Ql (Unsp spec) Detected Critically abnormal NOT DETECTED [facility] Comment on above: Result Comment: This test is not yet renata roved or cleared by the [place] FDA. When there are no FDA-approved or cleared tests available, and other criteria are met, FDA can make tests available under an emergency access mechanism called an Emergency Use Authorization (EUA). The EUA for this test is supported by the [place] of Health and Human Service's declaration that [...] longer be used). Performed By: #### [facility] #### [facility] [address] [place], [place] [id number] Dr. Caro Rowland COVID Quick Testingon 2020 Result Negative [employer] Other Covid-19 PCR ([facility])on 06-16 SARS-CoV-2 (COVID-19) RNA ESTHER+probe Ql (Unsp spec) Not detected Normal NOT DETECTED [facility] Comment on above: Result Comment: This test is not yet renata roved or cleared by the [place] FDA. When there are no FDA-approved or cleared tests available, and other criteria are met, FDA can make tests available under an emergency access mechanism called an Emergency Use Authorization (EUA). The EUA for this test is supported by the [employer] of Health and Human Service's (HHS's) declaration [...] consistent with SARS-CoV-2. Performed By: #### [facility] #### [facility] [address] [place], [place] [id number] Dr. Caro Rowland Encounters Encounter Date Encounter Type Care Provider Facility Start: 05-03-2022 End: 05-03-2022 ambulatory SANTHOSH ROBLEDO Facility:[facility] Start: 07-19-2021 End: 07-19-2021 ambulatory SANTHOSH ROBLEDO Facility:[facility] Start: 07-17-2021 End: 07-17-2021 ambulatory SANTHOSH ROBLEDO Facility:[facility] Start: 07-09-2021 End: 07-09-[address] EAN PATEL Facility:[facility] Start: 07-08-2021 End: 07-08-2021 ambulatory Carlie Glez Other [employer] Other Start: 07-08-2021 Office outpatient vi sit 5 minutes Carlie Ginty [facility] [address] Payers Date Payer Category Payer Unknown [id number] 2.16.84 [id number] 1975 Unknown [id number] 2.16.84 [id number] 1975 Unknown [id number] 2.16.84 [id number] 1975 Unknown [id number] 2.16.84 [id number] 1957 Unknown [id number]. [id number] Social History Date Type Detail Facility Sex Assigned At [employer] Other Evaluation note 07-08-2021 Note Date & [...] Patient care instructions given in writting by [facility] Care At Home document. [employer] Other Summary Purpose Family History No Family [...] BE BASED ON THE PRIMARY CLINICAL RECORDS. [facility]. provides no warranty or guarantee of the accuracy or completeness of information in this document.
[2025-03-20 15:35] LABS: Hematocrit 29.7 % (36.0-48.0); Hemoglobin 8.9 g/dL (12.0-16.0); Immature Granulocytes Abs Auto 0.06 10^3/uL (0.00-0.03); Immature Granulocytes Pct Auto 0.6 % (0.0-0.5); Lymphocytes Absolute Auto 2.4 10^3/uL (1.2-3.8); Mean Corpuscular HGB Conc 30.0 g/dL (29.9-35.2); Mean Corpuscular Hemoglobin 19.1 pg (26.7-34.0); Mean Corpuscular Volume 63.6 fL (81.0-99.0); Platelet Count 475 10^3/uL (150-450); Red Blood Count 4.67 10^6/uL (4.20-5.40); White Blood Count 10.6 10^3/uL (4.0-11.0)
[2025-03-20 16:23] LABS: Iron 25.0 ug/dL (50.0-170.0)
[2025-03-20 16:41] LABS: Ferritin 10.0 ng/mL (8.0-252.0)
== END 2025-03-20 15:11 | disposition home or self-care (01) ==
LOC: US 15:13
PROVIDERS: PCP Nurse Practitioner Family; Visit Provider Nurse Practitioner Family
DX: D25.9 Leiomyoma of uterus, unspecified (principal); D64.9 Anemia, unspecified; N83.292 Other ovarian cyst, left side
CPT/HCPCS: 36415; 76830; 76856; 82728; 83540; 85025